=== PATIENT | female | born 1955 | race Caucasian/White ===

== ENCOUNTER 2024-06-02 12:14 | Inpatient (IN) | payer MEDICARE, SELFPAY ==
[2024-06-02] VITALS (12 sets, daily range): BP systolic 100–157; BP diastolic 43–94; BMI 31.1
[2024-06-02 06:51] LABS: % Basophils 0.3 % (0-2); % Eosinophils 1.3 % (0-6); % Immature Granulocytes 0.4 % (0-0.5); % Lymphocytes 11.2 % (20.5-51.1); % Neutrophils 81.8 % (42.2-75.2); Absolute Eosinophils 0.2 10^3/uL (0-0.7); Absolute Immature Granulocytes 0.1 10^3/uL (0-0.05); Absolute Lymphocytes 1.3 10^3/uL (1.2-3.4); Absolute Monocytes 0.6 10^3/uL (0.1-0.6); Absolute Neutrophils 9.4 10^3/uL (1.4-6.5); Hematocrit 44.2 % (37.0-47.0); Mean Corp Hgb Conc. 33.9 g/dL (33.0-37.0); Mean Corpuscular Hgb 30.8 pg (27.0-31.0); Mean Corpuscular Volume 90.8 fL (81.0-99.0); Mean Platelet Volume 10.3 fL (7.4-10.4); Nucleated Red Blood Cells % 0 %; Platelet Count 199 10^3/uL (130-400); Red Blood Cell Count 4.87 10^6/uL (4.20-5.40); Red Cell Dist. Width 13.4 % (11.5-14.5); White Blood Cell Count 11.4 10^3/uL (4.8-10.8)
[2024-06-02 06:58] LABS: Blood Urea Nitrogen 21 mg/dl (7-17); Calcium 9.6 mg/dl (8.4-10.2); Carbon Dioxide 28 mmol/L (22-30); Chloride 107 mmol/L (98-107); Estimated Creatinine Clearance 77 ml/min; Glucose 133 mg/dl (70-99); Sodium 143 mmol/L (135-145); eGFR > 60.00
[2024-06-02 07:10] LABS: COVID-19 Antigen Negative (Negative)
--- NOTE | 2024-06-02 07:21 | ED.GENMED ---
History of Present Illness
General
Chief Complaint: Breathing Problem
Source: patient
Time Seen by Provider: 06/02/24 07:10
History of Present Illness
History of Present Illness:
68-year-old female presents to the emergency room feeling short of breath. Patient states that she felt pretty close to her baseline yesterday with perhaps a little more mucus production than normal. She does states she has a chronic cough. This
morning she was feeling short of breath and working harder to breathe. 911 was called. They noted her pulse ox to be a bit low and placed on oxygen. Patient denies any history of asthma and does not use inhalers or nebulizers. She denies any
fever.
Past History
Past History
ED Past Medical History: Other (Multiple sclerosis, glaucoma, )
ED Past Surgical History: (X 2) and Orthopedic (Left knee cartilage repair)
Social History
Tobacco: Former smoker
Alcohol: None
Personal:
Living: with family
Phy Exam
Physical Exam
Physical Exam:
General: Awake, Alert, Oriented X3. Appears chronically ill, bedbound
Vitals: Afebrile, Tachypneic
Head: Atraumatic
Eyes: Pupils equal, EOMI
Throat: Airway intact, no exudates
Neck: Trachea midline
Lungs: Expiratory wheezing bilaterally
Heart: Regular rate, no murmurs
Abd: Soft, Nontender, No pulsatile mass
Neuro: Diffuse weakness from multiple sclerosis
Skin: Warm, dry, no rash
Extremities: pulses equal b/l, no edema
Scores
Heart Failure Risk
Heart Failure Risk Score: Not Applicable
Course
Orders/Labs/Results
Orders:
Orders
06/02/24 06:28
Electrocardiogram (*1) Urgent
Reason for Study: Other
Other Reason for Exam: Possible Sepsis
Cardiac Monitoring- Treatment ONCE
IV Insert/Care/Rem.- Treatment PRN
CR Chest Portable - 1 View Urgent
Comment:
Reason For Exam: cough/sob
Reason Study Needs to be Portable: Unable to Transport
O2 Therapy [RESP] Urgent
Titrate/Wean O2 to maintain O2 sat greater than (%): 93
Special Instructions: TO MAINTAIN CONTINUOUS O2 SATS > OR = 93%
Pulse Ox/cont/shift [RESP] Urgent
Quantity: 1
Special Instructions: CONTINUOUS
06/02/24 06:29
EKG- Treatment ONCE
06/02/24 06:30
Basic Metabolic Panel Urgent
Complete Blood Count/With Diff Urgent
06/02/24 06:31
COVID-19 Antigen Urgent
Source: Nasal Swab
Influenza A+B Rapid Molecular Urgent
LETTY Source: Nasal Swab
Specimen Description:
06/02/24 07:10
Potassium Urgent
06/02/24 07:17
0.9% Sodium Chloride 1000 ml [Nss] 1,000 ml IV BOLUS
Ipratropium/Albuterol Sulfate [Duoneb] 3 ml INH R NOW STA
06/02/24 07:22
Add On- LAB Urgent
Tests Added?: procalcitonin
06/02/24 08:48
Ipratropium/Albuterol Sulfate [Duoneb] 3 ml INH R NOW STA
06/02/24 09:07
Procalcitonin Urgent
PCT Algorithmm Indication: Respiratory
06/02/24 10:07
Dexamethasone Sod Phosphate [Decadron] 10 mg IV NOW STA
06/02/24 11:50
Admit/Transfer Patient As Directed
Co-Sign Provider:
Level of Care: Inpatient admission
Assign to:: Telemetry
Physician / Group: linda morris
Diagnosis: bronchitis
Reason for Telemetry: Medication for Arrhythmia
Date to Stop Telemetry: 06/04/24
Time to Stop Telemetry: 11:00
Reason for Hospitalization: bronchitis
Expected length of stay greater than two midnights?: Yes
ELOS- Estimated Length of Stay in days: 2
I certify the patient meets the requirements for IP care: Yes
PRN Pain Medication Management As Directed
May give lesser potent ordered pain med per pt: Yes
preference::
Protocol:: Medication orders for pain may be administered in a
manner that supports deferring to patient preference
when the pt is:
- Requesting an ordered lesser potent pain medication.
Least to most potent pain medications are defined
as: acetaminophen < NSAID < tramadol < opioids
(morphine, oxycodone, hydromorphone).
- Requesting a lesser dose of the same medication IF
ORDERED.
- Requesting a less intrusive route of administration
if both routes are prescribed by the provider (PO <
IV).
06/02/24 11:52
Code Status As Directed
Resuscitation Status: Full Code
06/02/24 11:57
Azithromycin [Zithromax] 500 mg PO NOW STA
06/04/24 11:00
DC Protocol for Telemetry ONCE
Abnormal Lab Results
06/02/24
06:30
WBC 11.4 H 10^3/uL
(4.8-10.8)
Abs Immat Gran (auto) 0.1 H 10^3/uL
(0-0.05)
Absolute Neuts (auto) 9.4 H 10^3/uL
(1.4-6.5)
Neutrophils % 81.8 H %
(42.2-75.2)
Lymphocytes % 11.2 L %
(20.5-51.1)
BUN 21 H mg/dl
(7-17)
Creatinine 0.3 L mg/dL
(0.6-1.0)
Glucose 133 H mg/dl
(70-99)
06/02/24 06:30
06/02/24 07:10
Vital Signs
Initial and Last Documented VS:
Initial Vital Signs
Temp
98.2 F
06/02/24 06:17
Last Documented Vital Signs
Temp Pulse Resp BP Pulse Ox
98.2 F 71 22 104/46 93
06/02/24 06:17 06/02/24 12:45 06/02/24 12:45 06/02/24 12:00 06/02/24 12:45
MDM/Problems Addressed
Differential Diagnosis Includes:
Pneumonia, influenza, COVID, bacterial or viral bronchitis, COPD exacerbation
MDM/Problems Addressed:
Patient presents with increased work of breathing and shortness of breath. On exam she does have significant x-ray wheezing. It does not appear she has a known diagnosis of COPD but she is a former smoker. Chest x-ray does not show any acute
infiltrate. Pro-Ray is normal. COVID and flu are negative. Suspect the patient has exacerbation of COPD. She was provided an nebs, IV steroids. She has some improvement but still becomes hypoxic with coughing and talking. She is
wheelchair-bound and has MS making her prone to complications. Hospitalization is appropriate for further management.
*Radiology
Radiology exam reviewed: preliminary read by ED provider (No acute abnormalities per my review of the chest x-ray)
*Pulse Oximetry
Patient hypoxic: yes
*Critical Care Note
Total Time (30-74mins, 75-104mins- exclusive of procedures): Not Applicable
ED Attending Note
-
Portions of this chart may have been created with voice recognition software.� Occasional wrong word or��sound alike� substitutions may have occurred due to the inherent limitations of voice recognition software.
Discharge Plan
Departure
Patient Disposition: Admit
Date of Disposition: 06/02/24
Time of Disposition: 10:26
Presentation/result/management discussed w/ accepting MD/DO: Hospitalist
Condition: Fair
Discharge Problem:
Acute bronchitis, COPD (chronic obstructive pulmonary disease)
Interventions
Interventions:
*Risk Screen - Suicide Last Done: 06/02/24 06:17
*General Assessment Last Done: 06/02/24 06:17
*Neglect/Abuse Screening Last Done: 06/02/24 06:17
ED- Fall Risk Assessment Last Done: 06/02/24 07:45
*ED COVID-19 Vaccine History Last Done: 06/02/24 06:17
ED- Cardiac Assessment Last Done: 06/02/24 07:45
ED- Pulmonary Assessment Last Done: 06/02/24 07:45
[2024-06-02] MEDS: DUONEB 3 ML INH ×4 (07:26→19:57)
[2024-06-02] MEDS: NSS 1000 IV (07:27)
[2024-06-02 07:28] LABS: Potassium 4.6 mmol/L (3.5-5.1)
[2024-06-02 10:10] LABS: Procalcitonin < 0.05 ng/ml (0.0-0.25)
[2024-06-02] MEDS: DECADRON 10 MG IV (10:14)
--- NOTE | 2024-06-02 11:26 | HPS.HSE ---
Family Physician
-
Family Physician: Tess Garcia
Chief Complaint
-
Shortness of breath, cough
History of Present Illness
68-year-old female with a past medical history of MS, glaucoma, and former smoker who presents with worsening shortness of breath and cough. Patient reports she has been feeling short of breath for few weeks, and it was noticeably worse this
morning. She has a cough, sometimes productive. Denies fever, denies chills. No sore throat, no nasal congestion. She has a 92-lcsk-gfen smoking history. She did vomit yesterday. No abdominal pain, no constipation, no diarrhea. No dysuria.
No black or bloody stools. No hematuria.
Medical History
Past Medical History
Past Medical History: Reports Other
Additional Past Medical History:
Multiple sclerosis
Glaucoma
Hyperlipidemia
Obesity due to excess calories
Past Surgical History: Reports Other
Additional Past Surgical History:
Left knee cartilage
Social History
Tobacco: Former Smoker (Smoked 1 pack/day for 30 years)
Alcohol: None
Drug: None
Living: With Family
Family History
Family History: Not pertinent
Allergies / Home Medications
Allergies reflects when Allergies were last updated in [employer].
Home Medications with original date entered in [employer]
Allergy/Medication List:
Allergies
Allergy/AdvReac Type Severity Reaction Status Date / Time
No Known Allergies Allergy Verified 06/02/24 06:17
Home Medications Table - record
�Medication �Instructions �Recorded �Confirmed
atorvastatin 20 mg tablet (Lipitor) 20 mg PO DAILY 06/02/24 06/02/24
dorzolamide 22.3 mg-timolol 6.8 1 drp BOTH EYES BID 06/02/24 06/02/24
mg/mL eye drops
guaifenesin 100 mg/5 mL oral liquid 200 mg PO Q4HPRN PRN cough 06/02/24 06/02/24
latanoprost 0.005 % eye drops 1 drp BOTH EYES HS 06/02/24 06/02/24
Review of Systems
-
A 12 point ROS was completed and negative except as noted: Yes
Physical Exam
Vital Signs
Vital Signs
Temp Pulse Resp BP Pulse Ox
98.2 F 70 27 117/57 94
06/02/24 06:17 06/02/24 11:00 06/02/24 11:00 06/02/24 10:01 06/02/24 11:00
Physical Exam
General: No Apparent Distress
HEENT: NormoCephalic, Anicteric and Moist mucous membranes
Respiratory: Clear
Cardiac: S1/S2 and Regular Rhythm
GI: Soft, Non Tender, Non Distended and Normal Bowel Sounds
Musculoskeletal: No Clubbing and No Cyanosis
Neuro: Awake, Alert and Oriented
Psych: Calm
Laboratory Results
-
06/02/24 06:30
06/02/24 07:10
Laboratory Results
Total Bilirubin Cancelled 06/02/24 06:30
AST Cancelled 06/02/24 06:30
ALT Cancelled 06/02/24 06:30
Alkaline Phosphatase Cancelled 06/02/24 06:30
Impression/Plan
-
HPI: 68-year-old female with a past medical history of MS, glaucoma, and former smoker who presents with worsening shortness of breath and cough. Patient reports she has been feeling short of breath for few weeks, and it was noticeably worse this
morning. She has a cough, sometimes productive. Denies fever, denies chills. No sore throat, no nasal congestion. She has a 73-[id number]-egdn smoking history. She did vomit yesterday. No abdominal pain, no constipation, no diarrhea. No dysuria.
No black or bloody stools. No hematuria.
#Acute hypoxic respiratory insufficiency
#Acute bronchitis
#03-hfhq-vkkv smoking history
Patient satting 88% on room air. Currently on 2 L of oxygen, wean as tolerated
Influenza/COVID-negative, chest x-ray shows patchy left basilar opacification, slightly improved, possibly representing resolving pneumonia
Status post IV dexamethasone in the ER
Treat with azithromycin 500 mg p.o. daily, bronchodilators, wean oxygen as tolerated
Consult pulmonology
#Multiple sclerosis
She is bedbound at baseline
#Hyperlipidemia
Continue statin
#Glaucoma
Continue dorzolamide�timolol eyedrops
#Obesity due to excess calories
Affects all aspects of care
DVT prophylaxis�subcu Lovenox
Full code
Total time spent to see the patient on the floor, examine the patient, review data and lab results, discuss treatment plan with patient, nursing staff around 65 minutes.
[2024-06-02] MEDS: ZITHROMAX 500 MG PO (12:44)
[2024-06-02] MEDS: DUONEB INH (16:01)
--- NOTE | 2024-06-02 17:20 | CON.PUL ---
Consultation
Consultation Request
Date/Time Consultation Requested: 06/02/2024
Date/Time Consultation Performed: 06/02/2024
Requesting Provider: Dr. Luong
Performing Provider: Dr. Jaison Middleton
Reason for Consultation: Acute respiratory insufficiency-/acute bronchitis
Medical History
-
History of Present Illness:
68-year-old woman with past medical history significant for multiple sclerosis, glaucoma, former smoker who presents with worsening shortness of breath and coughing. Patient has been feeling more short of breath for the last few weeks but the
morning of admission was significant with minimal efforts were prompted to come to the emergency room.
Reports cough, productive at times. Denies hemoptysis. Denies increased phlegm production. Denies fevers or chills.
Denies nasal congestion, headache, rash, sore throat, GI or symptoms.
She has a 28-sgwy-skua history of smoking but quit a while ago.
She did report some vomiting yesterday.
She was found to be mildly hypoxemic. 88% on room air requiring 2 L with improvement.
I was consulted on 06/02/2024 for evaluation.
Past Medical History
Past Medical History: Other (See assessment and plan)
Social History
Tobacco: Former Smoker
Alcohol: None
Drug: None
Occupational Exposures: Denies
Environmental Exposures: Denies
Family History
Family History: Reviewed & Not Pertinent
Allergies / Home Medications
Allergies
Allergy/AdvReac Type Severity Reaction Status Date / Time
No Known Allergies Allergy Verified 06/02/24 06:17
Home Medications
�Medication �Instructions �Recorded �Confirmed �Last Taken �Type
atorvastatin 20 mg tablet (Lipitor) 20 mg PO DAILY 06/02/24 06/02/24 06/01/24 History
dorzolamide 22.3 mg-timolol 6.8 1 drp BOTH EYES BID 06/02/24 06/02/24 06/01/24 History
mg/mL eye drops
guaifenesin 100 mg/5 mL oral liquid 200 mg PO Q4HPRN PRN cough 06/02/24 06/02/24 06/01/24 History
latanoprost 0.005 % eye drops 1 drp BOTH EYES HS 06/02/24 06/02/24 06/01/24 History
Review of Systems
-
History Source: Patient
All other systems: Negative unless noted
Vitals / Labs / Diagnostic Testing
Vital Signs
Temp Pulse Resp BP Pulse Ox
98.2 F 94 24 119/94 91
06/02/24 06:17 06/02/24 15:59 06/02/24 15:59 06/02/24 13:00 06/02/24 15:59
Lab Data
06/02/24 06:30
06/02/24 07:10
Microbiology
06/02/24 06:31 Nasal Swab Influenza Types A & B (SHEBA) - Final
Negative for Influenza A & B, NAAT
Negative results must be combined with clinical observations
and patient history.
Nucleic Acid Amplification test (NAAT)performed on the
[employer] platform.
Diagnostic Testing:
Physical Exam
-
HEENT: Normocephalic
Cardiovascular: S1/S2
Respiratory: Wheeze (Minimal), Rhonchi (Bilateral having mild) and Non-Labored Respirations (At rest)
GI: Soft and Non Distended
Neurology: Awake, Alert and Other (Hypertrophic in 4 extremities)
Skin: Warm and Dry
General: Comfortable
Assessment
-
68-year-old woman admitted with shortness of breath. Found to be mildly hypoxemic. Chest x-ray with minimal left lower lobe abnormality compared to April 2023 appears similar. Symptoms were compatible with possible bronchitis. I was consulted
on 06/02/2024 for evaluation.
Acute respiratory insufficiency-88% on room air. Improved for 2 L
Acute tracheobronchitis
Chest x-ray 06/02/2024 reviewed: Patchy left basilar opacification atelectasis versus small pneumonia. Similar to prior in my opinion.
Leukocytosis-left shift
Negative influenza/negative COVID
Conditions present prior admission:
Admission to the hospital April 2023-with C. difficile diarrhea
Chronic aspiration cannot be ruled out with history of MS.-Swallowing evaluation 04/13/2023 without evidence of overt aspiration.
Multiple sclerosis
history of glaucoma
Hypercholesterolemia
Left knee surgery
Obesity
Former smoker 30-bcfj-fdla history
Assessment and plan:
Agree, clinical picture suggestive of acute bronchitis-possibly viral.
chest x-ray has a minimal left lower lobe abnormality similar to April 2023.
Microbiology evaluation so far negative
Agree with azithromycin
Monitor for fevers. Follow leukocytosis.
Symptomatic management-antitussive, nebulizer for secretion clearance
Patient did receive dexamethasone 10 mg in the emergency room-hold for now
Continue mucolytics
If continues to have chest congestion may add Pulmicort twice a day.
Incentive spirometry as able
-.
Provide oxygen to maintain pulse ox above 90%. Currently on 2 L.
-
Microaspiration can occur in patient with MS.
Records reviewed and in April 2023 there is no evidence for aspiration.
Will continue to monitor
May need to be reevaluated by speech pathology at some point.
-
DVT prophylaxis subcu Lovenox
-
Will follow
[2024-06-02] MEDS: LOVENOX 40 MG SC (17:41)
[2024-06-02] MEDS: MUCINEX 1200 MG PO (17:41)
[2024-06-02] MEDS: COSOPT EYE DROPS 2 DROP BOTH EYES (21:25)
[2024-06-02] MEDS: XALATAN OPHTHALMIC SOLUTION 1 DROP BOTH EYES (22:53)
[2024-06-02] MEDS: MUCINEX PO (23:02)
[2024-06-03] VITALS (11 sets, daily range): BP systolic 93–122; BP diastolic 44–66; BMI 29.5
--- NOTE | 2024-06-03 06:46 | PTCARENOTE ---
Patient arrived from the ED via stretcher at approximately 0545. Patient pulled over from stretcher to bed. Patient AAOx3, forgetful @ times. VSS as documented. Assessment as documented. Patient oriented to room. Bed in lowest position. Call correia
within reach.
[2024-06-03] MEDS: DUONEB 3 ML INH ×4 (07:28→19:53)
[2024-06-03] MEDS: MUCINEX 1200 MG PO ×2 (08:29→20:29)
[2024-06-03] MEDS: ZITHROMAX 500 MG PO (08:29)
[2024-06-03] MEDS: LIPITOR 20 MG PO (08:29)
[2024-06-03] MEDS: COSOPT EYE DROPS 1 DROP BOTH EYES ×2 (08:30→20:29)
[2024-06-03] MEDS: ROBITUSSIN 200 MG PO (08:35)
--- NOTE | 2024-06-03 08:37 | W.PN.HOSP.TC ---
Today's Communication/Plan
-
see bold
Assessment / Plan
Assessment / Plan
HPI: 68-year-old female with a past medical history of MS, glaucoma, and former smoker who presents with worsening shortness of breath and cough. Patient reports she has been feeling short of breath for few weeks, and it was noticeably worse this
morning. She has a cough, sometimes productive. Denies fever, denies chills. No sore throat, no nasal congestion. She has a 53-[id number]-utnk smoking history. She did vomit yesterday. No abdominal pain, no constipation, no diarrhea. No dysuria.
No black or bloody stools. No hematuria.
#Acute hypoxic respiratory insufficiency
#Acute bronchitis
#60-jjyg-oaph smoking history
Patient satting 88% on room air. Currently on 2-3 L of oxygen, wean as tolerated. She does not wear oxygen at home
Influenza/COVID-negative, chest x-ray shows patchy left basilar opacification, slightly improved, possibly representing resolving pneumonia
Status post IV dexamethasone in the ER
Pulmonology following, recommend monitoring off steroids for now
Continue azithromycin 500 mg p.o. daily, bronchodilators, wean oxygen as tolerated
#Multiple sclerosis
She is bedbound at baseline
PT/OT
#Hyperlipidemia
Continue statin
#Glaucoma
Continue dorzolamide�timolol eyedrops
#Obesity due to excess calories
Affects all aspects of care
DVT prophylaxis�subcu Lovenox
Full code
Total time spent to see the patient on the floor, examine the patient, review data and lab results, discuss treatment plan with patient, nursing staff around 45 minutes.
Physical Exam
General: No acute distress
HEENT: Normocephalic, Atraumatic, EOMI, MMM
Respiratory: Coarse breath sounds
Cardiac: Normal S1/S2, Regular Rate and Rhythm
GI: Soft, Nontender, Nondistended, Normal Bowel Sounds
Extremities: No Clubbing, Cyanosis
Msk: Atrophy of bilateral lower extremities noted
Neuro: Nonfocal/Grossly Intact
Psych: Calm, Cooperative
Anticipated Discharge: 24 - 48 hours
Subjective/Interval History
-
Date of Service: June 03, 2024
Patient continues to cough. Her shortness of breath improved. Denies chest pain. No fever, no vomiting.
Objective Data
-
Vital Signs:
Vital Signs
Temp Pulse Resp BP Pulse Ox
97.5 F 75 15 93/58 93
06/03/24 05:48 06/03/24 07:31 06/03/24 07:31 06/03/24 05:48 06/03/24 07:31
--- NOTE | 2024-06-03 11:27 | CM ---
Addendum entered by Tuyet Daigle RN 06/03/24 11:37:
Correction: Patient has had [facility] in the past.
Original Note:
Reviewed the chart notes and spoke with the patient at the bedside. The patient resides with her sister and daughter in a two story home with three steps to enter via from and nine in the rear. The patient resides on the first floor level.
Patient is wheelchair bound, but able to transfer with assistance to commode. The patient reports having had [facility] in the past and being to [facility]. The patient is currently on supplemental O2. CM continues to be available to patient/family and is
monitoring medical plan for needs at discharge.
Plan: Discharge plans will depend on the patient's progress.
--- NOTE | 2024-06-03 12:30 | W.PN.PUL3 ---
Today's Communication / Plan
-
Continue DuoNebs
Continue antibiotics
Mucolytics
Incentive spirometry as able
Wean down FiO2
Continue to hold further systemic corticosteroids
Assessment
-
68-year-old woman admitted with shortness of breath. Found to be mildly hypoxemic. Chest x-ray with minimal left lower lobe abnormality compared to April 2023 appears similar. Symptoms were compatible with possible bronchitis. I was consulted
on 06/02/2024 for evaluation.
Acute respiratory insufficiency-88% on room air. Improved for 2 L
Acute tracheobronchitis
Chest x-ray 06/02/2024 reviewed: Patchy left basilar opacification atelectasis versus small pneumonia. Similar to prior in my opinion.
Risk for aspiration given history of multiple sclerosis.
Leukocytosis-left shift
Negative influenza/negative COVID
Negative procalcitonin
Conditions present prior admission:
Admission to the hospital April 2023-with C. difficile diarrhea
Chronic aspiration cannot be ruled out with history of MS.-Swallowing evaluation 04/13/2023 without evidence of overt aspiration.
Multiple sclerosis
history of glaucoma
Hypercholesterolemia
Left knee surgery
Obesity
Former smoker 70-anfg-ajcc history
Assessment and plan:
Agree, clinical picture suggestive of acute bronchitis-possibly viral.
-
Chest x-ray has a minimal left lower lobe abnormality similar to April 2023.
Microbiology evaluation so far negative
Continue azithromycin complete total of 5 days.
-
Remains afebrile. Follow leukocytosis.
Symptomatic management-antitussive, nebulizer for secretion clearance-currently on DuoNebs 4 times a day.
Suction if necessary-has a strong cough effort. Producing minimal phlegm.
Patient did receive dexamethasone 10 mg in the emergency room-hold for now
Continue mucolytics
-
If continues to have chest congestion may add Pulmicort twice a day. Hold for now.
Incentive spirometry as able
-.
Provide oxygen to maintain pulse ox above 90%. Currently on 2 L.
Wean off as able, usually not on oxygen
No evidence for metabolic alkalosis-less likely hypercapnic.
-
Microaspiration can occur in patient with MS.
Records reviewed and in April 2023 there is no evidence for aspiration.
Will continue to monitor
May need to be reevaluated by speech pathology at some point. During this hospital stay.
-
DVT prophylaxis subcu Lovenox
-
Will follow
Subjective Data
-
Date of Service:
Date of Service: June 03, 2024
Objective Data
Data Reviewed
Vital Signs / I&O / Oxygen:
Vital Signs
Temp Pulse Resp BP Pulse Ox
98.0 F 74 20 118/44 91
06/03/24 11:47 06/03/24 11:47 06/03/24 11:47 06/03/24 11:47 06/03/24 07:40
SaO2 91
Nasal Cannula flow liters per 2
minute
Labs/Micro/Reports
Lab Data
06/02/24 06:30
06/02/24 07:10
Microbiology
06/02/24 06:31 Nasal Swab Influenza Types A & B (SHEBA) - Final
Negative for Influenza A & B, NAAT
Negative results must be combined with clinical observations
and patient history.
Nucleic Acid Amplification test (NAAT)performed on the
[employer] platform.
--- NOTE | 2024-06-03 14:57 | PTOTSP ---
Orders received, chart reviewed and spoke with RN, whom cleared patient to participate in session.
Contacted patient bedside and spoke with her for 10 minutes about her current level of function and support at home
Reports she is always lifted out of bed to a W/C by 2 people (usually her 2 sons). Dependently pushed in W/C to bathroom to be lifted on to toilet when needed.
She does not stand at all and does not perform LE exercises. Has not stood or been less than a 2 person assist level 'for years'.
Recommend use of fredis lift for OOB mobility while in house. Does not currently demonstrate skilled therapy need and will be discharged from caseload at this time.
[2024-06-03] MEDS: PULMICORT 0.5 MG INH ×2 (16:14→19:53)
[2024-06-03] MEDS: LOVENOX 40 MG SC (17:53)
[2024-06-03] MEDS: XALATAN OPHTHALMIC SOLUTION 1 DROP BOTH EYES (22:07)
[2024-06-04] VITALS (7 sets, daily range): BP systolic 80–124; BP diastolic 37–61
[2024-06-04] MEDS: DUONEB 3 ML INH (07:27)
[2024-06-04] MEDS: PULMICORT 0.5 MG INH (07:27)
--- NOTE | 2024-06-04 08:58 | W.PN.HOSP.TC ---
Today's Communication/Plan
-
see bold
Assessment / Plan
Assessment / Plan
HPI: 68-year-old female with a past medical history of MS, glaucoma, and former smoker who presents with worsening shortness of breath and cough. Patient reports she has been feeling short of breath for few weeks, and it was noticeably worse this
morning. She has a cough, sometimes productive. Denies fever, denies chills. No sore throat, no nasal congestion. She has a 23-ykbx-ubuy smoking history. She did vomit yesterday. No abdominal pain, no constipation, no diarrhea. No dysuria.
No black or bloody stools. No hematuria.
#Acute hypoxic respiratory insufficiency
#Acute bronchitis
#85-lybo-gcyi smoking history
Patient satting 88% on room air. Currently on 2-3 L of oxygen, wean as tolerated. She does not wear oxygen at home
Influenza/COVID-negative, chest x-ray shows patchy left basilar opacification, slightly improved, possibly representing resolving pneumonia
Status post IV dexamethasone in the ER
Pulmonology following, recommend monitoring off steroids for now
Continue azithromycin 500 mg p.o. daily, bronchodilators, wean oxygen as tolerated
Change DuoNebs to xopenex and ipratropium due to complaints of nausea
#Soft blood pressure
Blood pressure 85/42 today
Patient is asymptomatic
Give midodrine, start gentle IV fluids for 500 cc
#Multiple sclerosis
She is bedbound at baseline, uses [facility] for all care
PT/OT signed off
#Hyperlipidemia
Continue statin
#Glaucoma
Continue dorzolamide�timolol eyedrops
DVT prophylaxis�subcu Lovenox
Full code
Total time spent to see the patient on the floor, examine the patient, review data and lab results, discuss treatment plan with patient, nursing staff around 48 minutes.
Physical Exam
General: No acute distress
HEENT: Normocephalic, Atraumatic, EOMI, MMM
Respiratory: Coarse breath sounds
Cardiac: Normal S1/S2, Regular Rate and Rhythm
GI: Soft, Nontender, Nondistended, Normal Bowel Sounds
Extremities: No Clubbing, Cyanosis
Msk: Atrophy of bilateral lower extremities noted
Neuro: Nonfocal/Grossly Intact
Psych: Calm, Cooperative
Anticipated Discharge: 24 - 48 hours
Subjective/Interval History
-
Date of Service: June 04, 2024
Patient complains of nausea after receiving her DuoNeb. No vomiting. Continues to cough. No shortness of breath. No fever.
Objective Data
-
Vital Signs:
Vital Signs
Temp Pulse Resp BP Pulse Ox
98.1 F 72 20 99/61 92
06/04/24 07:55 06/04/24 07:55 06/04/24 07:55 06/04/24 07:55 06/04/24 07:55
I&O
06/03/24 06/04/24 06/05/24
06:59 06:59 06:59
Intake Total 860 / 860
Output Total 650 / 650
Balance 210 / 210
[2024-06-04] MEDS: ZITHROMAX 500 MG PO (09:48)
[2024-06-04] MEDS: MUCINEX 1200 MG PO ×2 (09:48→20:51)
[2024-06-04] MEDS: COSOPT EYE DROPS 1 DROP BOTH EYES ×2 (09:48→20:51)
[2024-06-04] MEDS: LIPITOR 20 MG PO (09:48)
[2024-06-04] MEDS: DUONEB INH (11:18)
[2024-06-04] MEDS: NSS 500 IV (12:34)
[2024-06-04] MEDS: ProAmatine 5 MG PO (12:35)
[2024-06-04] MEDS: XOPENEX 1.25 MG INHALANT SOLUTION INH ×2 (13:34→17:35)
[2024-06-04] MEDS: ATROVENT NEBULES INH ×2 (13:34→17:35)
--- NOTE | 2024-06-04 16:40 | W.PN.PUL3 ---
Today's Communication / Plan
-
Continue Xopenex + Atrovent; consider pretreating with Zofran next time
Continue Zithromax
Mucolytics
If she continues to have difficulty expectorating then start chest PT with nebulized 3%
Incentive spirometry as able
Start flutter valve
Wean down O2 flow rate; check ambulatory pulse oximetry prior to discharge
Continue to hold further systemic corticosteroids
Pulmonary service will continue to follow along
Assessment
-
68-year-old woman admitted with shortness of breath. Found to be mildly hypoxemic. Chest x-ray with minimal left lower lobe abnormality compared to April 2023 appears similar. Symptoms were compatible with possible bronchitis. I was consulted
on 06/02/2024 for evaluation.
Acute respiratory insufficiency-88% on room air. Improved now on 2 L
Acute tracheobronchitis
Chest x-ray 06/02/2024 reviewed: Patchy left basilar opacification atelectasis versus small pneumonia. Similar to prior in my opinion.
Risk for aspiration given history of multiple sclerosis.
Leukocytosis-left shift
Negative influenza/negative COVID
Negative procalcitonin
Conditions present prior admission:
Admission to the hospital April 2023-with C. difficile diarrhea
Chronic aspiration cannot be ruled out with history of MS.-Swallowing evaluation 04/13/2023 without evidence of overt aspiration.
Multiple sclerosis, not on treatment as she stopped this herself without the recommendation of a neurologist (as per the patient)
history of glaucoma
Hypercholesterolemia
Left knee surgery
Obesity
Former smoker [id number]-lnht history
Assessment and plan:
Clinical picture suggestive of acute bronchitis-possibly viral.
-
Chest x-ray on 06/02/2024 has a minimal left lower lobe abnormality similar to April 2023.
No cultures have been submitted this admission
Continue azithromycin - complete total of 5 days assuming she continues to clinically improve and remains afebrile for 48 hours prior to stop
-
Remains afebrile; trend WBC
Symptomatic management-antitussive, nebulizer for secretion clearance-currently on Xopenex + Atrovent TID
Because she had nausea on 06/04/2024 during a nebulizer treatment, would pretreat with Zofran prior to next administration
Suction if necessary-has a strong cough effort. Producing minimal phlegm.
Patient did receive dexamethasone 10 mg in the emergency room-hold for now
Continue mucolytics with Mucinex 1200mg q12hr
Continue budesonide
-
If continues to have chest congestion with difficulty expectorating then would start chest PT with nebulized 3%
Recommend flutter valve
Incentive spirometry as able
-.
Provide oxygen to maintain pulse ox above 90%. Currently on 2 L.
Wean off as able, as she is usually not on oxygen
No evidence for metabolic alkalosis on blood work from 06/02/2024-less likely hypercapnic.
-
Microaspiration can occur in patient with MS, plus she is not on any medications for her MS (which was her decision)
Records reviewed and in April 2023 there is no evidence for aspiration.
Will continue to monitor
May need to be reevaluated by speech pathology at some point during this hospital stay.
-
DVT prophylaxis subcu Lovenox
-
Will follow
Total time spent today was 37 minutes for this encounter. Time includes reviewing laboratory test/imaging results, reviewing pertinent medical records, obtaining and reviewing medical history, performing an appropriate exam, ordering medications,
tests and procedures. Time also includes documentation of this encounter, coordinating patient care and communicating with other healthcare professionals. Total time does not include separately billed tests performed on this date of service.
Subjective Data
-
Date of Service:
Date of Service: June 04, 2024
Chief Complaint: Pulmonary Follow Up
Subjective:
Patient was seen earlier today (late note entry). Currently on 2 L/min nasal cannula and breathing comfortably. Still coughing but having a difficult time getting up her phlegm. She had some nausea earlier today during a nebulizer treatment. She
currently denies chest pain, JORDAN, nausea, fevers or chills.
Review of Systems
General: Other (Negative unless mentioned above)
Objective Data
Data Reviewed
Vital Signs / I&O / Oxygen:
Vital Signs
Temp Pulse Resp BP Pulse Ox
98.1 F 72 20 99/61 92
06/04/24 07:55 06/04/24 07:55 06/04/24 07:55 06/04/24 07:55 06/04/24 07:55
Intake and Output
06/03/24 06/04/24 06/05/24
06:59 06:59 06:59
Intake Total 860 / 860
Output Total 650 / 650
Balance 210 / 210
SaO2 92
Nasal Cannula flow liters per 2
minute
Physical Exam
General: Respiratory Distress (negative), Comfortable, Chills (negative) and Sweats (negative)
HEENT: Normocephalic and Anicteric
Cardiovascular: S1-S2 and Peripheral Edema (negative)
Respiratory: Wheeze (negative), Crackles (Bilaterally mainly in the anterior lung hatfield (R >L)), Rhonchi (negative) and Non-Labored Respirations
GI: Soft, Non Distended, Non Tender and Normal Bowel Sounds
Neurology: AO x 3 and Tremors (negative)
Skin: Warm, Dry, Cyanosis (negative) and Jaundice (negative)
Labs/Micro/Reports
Lab Data
06/02/24 06:30
06/02/24 07:10
Microbiology
06/03/24 01:11 Nose MRSA Screen - Final
No Methicillin Resistant Staphylococcus aureus isolated.
06/02/24 06:31 Nasal Swab Influenza Types A & B (SHEBA) - Final
Negative for Influenza A & B, NAAT
Negative results must be combined with clinical observations
and patient history.
Nucleic Acid Amplification test (NAAT)performed on the
[employer] platform.
[2024-06-04] MEDS: LOVENOX 40 MG SC (17:13)
[2024-06-04] MEDS: PULMICORT INH (17:35)
[2024-06-04] MEDS: XALATAN OPHTHALMIC SOLUTION 1 DROP BOTH EYES (20:52)
[2024-06-04] MEDS: ZOFRAN 4 MG IV (21:21)
[2024-06-05 03:24] VITALS: BP 110/44
[2024-06-05 07:25] VITALS: BP 109/50
[2024-06-05] MEDS: ATROVENT NEBULES 0.5 MG INH ×3 (07:39→19:54)
[2024-06-05] MEDS: XOPENEX 1.25 MG INHALANT SOLUTION INH ×3 (07:39→19:54)
[2024-06-05] MEDS: PULMICORT 0.5 MG INH ×2 (07:39→19:54)
[2024-06-05] MEDS: ZOFRAN 4 MG IV (07:43)
[2024-06-05] MEDS: FLUSH (NSS) 2 FLUSH IV (07:43)
--- NOTE | 2024-06-05 08:36 | W.PN.HOSP.TC ---
Today's Communication/Plan
-
see bold
Assessment / Plan
Assessment / Plan
HPI: 68-year-old female with a past medical history of MS, glaucoma, and former smoker who presents with worsening shortness of breath and cough. Patient reports she has been feeling short of breath for few weeks, and it was noticeably worse this
morning. She has a cough, sometimes productive. Denies fever, denies chills. No sore throat, no nasal congestion. She has a 60-ipgi-dmzp smoking history. She did vomit yesterday. No abdominal pain, no constipation, no diarrhea. No dysuria.
No black or bloody stools. No hematuria.
#Acute hypoxic respiratory insufficiency
#Acute bronchitis
#83-kvzz-kzjc smoking history
Patient satting 88% on room air. Currently on 2-3 L of oxygen, wean as tolerated. She does not wear oxygen at home
Influenza/COVID-negative, chest x-ray shows patchy left basilar opacification, slightly improved, possibly representing resolving pneumonia
Status post IV dexamethasone in the ER
Pulmonology following, recommend monitoring off steroids for now
Continue azithromycin 500 mg p.o. daily, bronchodilators, wean oxygen as tolerated
Changed DuoNebs to xopenex and ipratropium due to complaints of nausea, also recommend premedicating with Zofran
Continue Acapella valve, may benefit from chest PT as per pulmonology
Consult SPL to assess for microaspiration
#Soft blood pressure
Blood pressure 85/42 on 06/04. Patient asymptomatic
Resolved with midodrine, s/p gentle IV fluids for 500 cc
Monitor, continue midodrine as needed
#Multiple sclerosis
She is bedbound at baseline, uses [facility] for all care
PT/OT signed off
#Hyperlipidemia
Continue statin
#Glaucoma
Continue dorzolamide�timolol eyedrops
DVT prophylaxis�subcu Lovenox
Full code
Total time spent to see the patient on the floor, examine the patient, review data and lab results, discuss treatment plan with patient, nursing staff around 46 minutes.
Physical Exam
General: No acute distress
HEENT: Normocephalic, Atraumatic, EOMI, MMM
Respiratory: Coarse breath sounds
Cardiac: Normal S1/S2, Regular Rate and Rhythm
GI: Soft, Nontender, Nondistended, Normal Bowel Sounds
Extremities: No Clubbing, Cyanosis
Msk: Atrophy of bilateral lower extremities noted
Neuro: Nonfocal/Grossly Intact
Psych: Calm, Cooperative
Anticipated Discharge: 24 - 48 hours
Subjective/Interval History
-
Date of Service: June 05, 2024
Patient received Zofran before getting her breathing treatment. Denies nausea. Continues to cough. Her cough is worse with drinking. No fever, no vomiting.
Objective Data
-
Vital Signs:
Vital Signs
Temp Pulse Resp BP Pulse Ox
98.6 F 90 14 109/50 93
06/05/24 07:25 06/05/24 07:43 06/05/24 07:43 06/05/24 07:25 06/05/24 07:43
I&O
06/04/24 06/05/24 06/06/24
06:59 06:59 06:59
Intake Total 860 / 860 770 / 770
Output Total 650 / 650 225 / 225
Balance 210 / 210 545 / 545
[2024-06-05] MEDS: MUCINEX 1200 MG PO ×2 (09:28→21:17)
[2024-06-05] MEDS: TYLENOL 650 MG PO ×2 (09:28→21:20)
[2024-06-05] MEDS: COSOPT EYE DROPS 1 DROP BOTH EYES ×2 (09:30→21:17)
[2024-06-05] MEDS: ZITHROMAX 500 MG PO (09:34)
[2024-06-05] MEDS: ROBITUSSIN 200 MG PO (09:34)
[2024-06-05] MEDS: LIPITOR 20 MG PO (09:35)
[2024-06-05 11:00] VITALS: BP 99/78
--- NOTE | 2024-06-05 11:52 | PTCARENOTE ---
Pt who is bed bound with a hx of MS, is in a centrea pro bed with two stage 2 buttock wounds. It appears the wounds are increasing in size and breakdown continues. Havre wound and some serosanguineous drainage noted. Will cont to turn pt.
--- NOTE | 2024-06-05 14:00 | W.PN.PUL3 ---
Today's Communication / Plan
-
Continue Xopenex + Atrovent; consider pretreating with Zofran next time
Continue Zithromax
Mucolytics
If she continues to have difficulty expectorating then start chest PT with nebulized 3%
Incentive spirometry as able
Flutter valve
Start Tessalon Perles
Wean down O2 flow rate; check ambulatory pulse oximetry prior to discharge
Continue to hold further systemic corticosteroids
Pulmonary service will continue to follow along
Assessment
-
68-year-old woman admitted with shortness of breath. Found to be mildly hypoxemic. Chest x-ray with minimal left lower lobe abnormality compared to April 2023 appears similar. Symptoms were compatible with possible bronchitis. I was consulted
on 06/02/2024 for evaluation.
Acute respiratory insufficiency-88% on room air. Improved now on 2 L
Acute tracheobronchitis
Chest x-ray 06/02/2024 reviewed: Patchy left basilar opacification atelectasis versus small pneumonia. Similar to prior in my opinion.
Risk for aspiration given history of multiple sclerosis.
Leukocytosis-left shift
Negative influenza/negative COVID
Negative procalcitonin
Conditions present prior admission:
Admission to the hospital April 2023-with C. difficile diarrhea
Chronic aspiration cannot be ruled out with history of MS.-Swallowing evaluation 04/13/2023 without evidence of overt aspiration.
Multiple sclerosis, not on treatment as she stopped this herself without the recommendation of a neurologist (as per the patient)
history of glaucoma
Hypercholesterolemia
Left knee surgery
Obesity
Former smoker 19-mvaz-iegc history
Assessment and plan:
Clinical picture suggestive of acute bronchitis-possibly viral.
-
Chest x-ray on 06/02/2024 has a minimal left lower lobe abnormality similar to April 2023.
No cultures have been submitted this admission
Continue azithromycin - complete total of 5 days assuming she continues to clinically improve and remains afebrile for 48 hours prior to stop
-
Remains afebrile; trend WBC
Symptomatic management-antitussive, nebulizer for secretion clearance-currently on Xopenex + Atrovent TID
Because she had nausea on 06/04/2024 during a nebulizer treatment, continue to pretreat with Zofran prior to nebulizer administration
Suction if necessary-has a strong cough effort. Producing minimal phlegm.
Patient did receive dexamethasone 10 mg in the emergency room-hold for now
Continue mucolytics with Mucinex 1200mg q12hr
Given that her cough is more dry as of 06/05/2024, start Tessalon Perles
Continue budesonide
-
If continues to have chest congestion with difficulty expectorating then would start chest PT with nebulized 3%
Recommend flutter valve
Incentive spirometry as able
-.
Provide oxygen to maintain pulse ox above 90%. Currently on 2 L.
Wean off as able, as she is usually not on oxygen
If unable to wean off oxygen or if resting SaO2 <96% on room air, then check ambulatory pulse oximetry prior to discharge
No evidence for metabolic alkalosis on blood work from 06/02/2024-less likely hypercapnic.
-
Microaspiration can occur in patient with MS, plus she is not on any medications for her MS (which was her decision)
Records reviewed and in April 2023 there is no evidence for aspiration.
Will continue to monitor
May need to be reevaluated by speech pathology at some point during this hospital stay.
-
DVT prophylaxis subcu Lovenox
-
Will follow
Total time spent today was 39 minutes for this encounter. Time includes reviewing laboratory test/imaging results, reviewing pertinent medical records, obtaining and reviewing medical history, performing an appropriate exam, ordering medications,
tests and procedures. Time also includes documentation of this encounter, coordinating patient care and communicating with other healthcare professionals. Total time does not include separately billed tests performed on this date of service.
Subjective Data
-
Date of Service:
Date of Service: June 05, 2024
Chief Complaint: Pulmonary Follow Up
Subjective:
Seen and evaluated today at bedside. Had no problems today with nebulizer and got Zofran prior which helped her nausea which she had felt yesterday. She does feel like her breathing is better with the nebulizer treatment. She is still coughing
similar to yesterday. Currently on 2 L/min nasal cannula. Her cough sounds more dry today. She denies chest pain, JORDAN, nausea, fevers or chills.
Review of Systems
General: Other (Negative unless mentioned above)
Objective Data
Data Reviewed
Vital Signs / I&O / Oxygen:
Vital Signs
Temp Pulse Resp BP Pulse Ox
98.6 F 90 14 109/50 93
06/05/24 07:25 06/05/24 07:43 06/05/24 07:43 06/05/24 07:25 06/05/24 07:43
Intake and Output
06/04/24 06/05/24 06/06/24
06:59 06:59 06:59
Intake Total 860 / 860 770 / 770
Output Total 650 / 650 225 / 225
Balance 210 / 210 545 / 545
SaO2 93
Nasal Cannula flow liters per 2
minute
Physical Exam
General: Respiratory Distress (negative), Comfortable, Chills (negative) and Sweats (negative)
HEENT: Normocephalic and Anicteric
Cardiovascular: S1-S2 and Peripheral Edema (negative)
Respiratory: Wheeze (negative), Rhonchi (negative), Non-Labored Respirations and Other (Coarse breath sounds heard bilaterally)
GI: Soft, Non Distended, Non Tender and Normal Bowel Sounds
Neurology: AO x 3 and Tremors (negative)
Skin: Warm, Dry, Cyanosis (negative) and Jaundice (negative)
Labs/Micro/Reports
Lab Data
06/02/24 06:30
06/02/24 07:10
Microbiology
06/03/24 01:11 Nose MRSA Screen - Final
No Methicillin Resistant Staphylococcus aureus isolated.
06/02/24 06:31 Nasal Swab Influenza Types A & B (SHEBA) - Final
Negative for Influenza A & B, NAAT
Negative results must be combined with clinical observations
and patient history.
Nucleic Acid Amplification test (NAAT)performed on the
[employer] platform.
--- NOTE | 2024-06-05 14:43 | PTOTSP ---
Speech Therapy Evaluation:
Pt with acute on chronic risk factors of dysphagia. Acute risk factors include respiratory insufficiency with acute bronchitis. Chronic factors include MS. Cough x1 noted while masticating regular solids, though pt also with baseline cough outside
of PO intake. No s/sx of aspiration with liquids or puree. Pt passed 3oz swallow screen. CXR with improving patchy L basilar opacity, possibly representing resolving pneumonia. Pt remains at increased risk of aspiration given weak cough strength and
non-ambulatory status at baseline.
VSE hx:
VSE completed 04/13/2023. Pt demonstrated functional/mild oral stage and functional pharyngeal stage of swallowing. No aspiration occurred. FORMULATOR recommend regular and thin liquid diet. No further services indicated at the time.
Recommend:
1. Continue IDDSI Level 7 (regular) solids and thin liquids
2. Medications as tolerated
3. General aspiration precautions
4. FORMULATOR to follow to monitor tolerance of diet and determine if repeat instrumental assessment warranted
[2024-06-05] MEDS: LOVENOX 40 MG SC (16:50)
[2024-06-05 19:17] VITALS: BP 119/45
[2024-06-05] MEDS: TESSALON PERLES 200 MG PO (21:17)
[2024-06-05] MEDS: XALATAN OPHTHALMIC SOLUTION 1 DROP BOTH EYES (21:17)
[2024-06-05 23:24] VITALS: BP 102/41
[2024-06-06 03:36] VITALS: BP 114/50
[2024-06-06 06:00] VITALS: BMI 29.3
[2024-06-06 06:50] VITALS: BP 118/46
[2024-06-06] MEDS: XOPENEX 1.25 MG INHALANT SOLUTION INH ×3 (07:33→20:14)
[2024-06-06] MEDS: ATROVENT NEBULES 0.5 MG INH ×3 (07:33→20:14)
[2024-06-06] MEDS: PULMICORT 0.5 MG INH ×2 (07:33→20:14)
[2024-06-06] MEDS: MUCINEX 1200 MG PO ×2 (08:42→20:55)
[2024-06-06] MEDS: LIPITOR 20 MG PO (08:42)
[2024-06-06] MEDS: TESSALON PERLES 200 MG PO ×3 (08:42→22:07)
[2024-06-06] MEDS: ZITHROMAX 500 MG PO (08:42)
[2024-06-06] MEDS: COSOPT EYE DROPS 1 DROP BOTH EYES ×2 (08:42→20:55)
--- NOTE | 2024-06-06 11:02 | WOUNDNOTE ---
[facility] RN note: Patient admitted with bronchitis. Patient is bedbound, lives with family and is current with VN. She has a hospital bed but said 'Medicare' would not pay for an air mattress.
See H&P for complete history.
PMH: MS, former smoker, obesity.
Wound Location and type/assessment: Patient admitted with: R buttocks cluster of deep dermal stage 2 pressure injuries vs healing stage 3 pressure injury, ulcers pink granular. Does not appear new. Sacral crease MASD. Heels blanchable red and
intact.
Appetite: patient reports her appetite is improved.
Pressure redistribution devices in place: Centrella Pro Accumax bed. She cannot turn self in bed. Discussed with REMY Vasquez agrees with applying a static air overlay.
Plan: R buttocks dressing changed. Waffle air overlay mattress applied. Protective foam applied to heels. Patient turned to L semi side lying position with help from MALIKA Leon. Heels off bed with pillows. t/c SPD and order Foot Waffle boots.
Discussed with MALIKA Leon. Air chair cushion given.
Updated re: appearance of R buttocks ulcers and confirmed orders with Dr. Dutton and will update RN.
Care plan to be updated and will follow as needed.
Note to case management of equipment requested for discharge: Air mattress. Discussed with MARCELLA Zamora.
Recommend follow up at wound care center upon discharge.
[2024-06-06 11:10] VITALS: BP 110/46
--- NOTE | 2024-06-06 12:52 | W.PN.HOSP.TC ---
Addendum entered and electronically signed by Kvng Dutton MD 06/07/24 17:00:
R buttocks cluster of deep dermal stage 2 pressure injuries vs healing stage 3 pressure injury
Original Note:
Today's Communication/Plan
-
Antibiotics
Nebs
Monitor for recurrent hypotension
Wound care
Attempt to wean off O2
Assessment / Plan
Assessment / Plan
HPI: 68-year-old female with a past medical history of MS, glaucoma, and former smoker who presents with worsening shortness of breath and cough. Patient reports she has been feeling short of breath for few weeks, and it was noticeably worse this
morning. She has a cough, sometimes productive. Denies fever, denies chills. No sore throat, no nasal congestion. She has a 38-esah-oaun smoking history. She did vomit yesterday. No abdominal pain, no constipation, no diarrhea. No dysuria.
No black or bloody stools. No hematuria.
#Acute hypoxic respiratory insufficiency
#Acute bronchitis
#34-knqd-wvqz smoking history
Patient satting 88% on room air. Currently on 2-3 L of oxygen, wean as tolerated. She does not wear oxygen at home
Influenza/COVID-negative, chest x-ray shows patchy left basilar opacification, slightly improved, possibly representing resolving pneumonia
Status post IV dexamethasone in the ER
Pulmonology following, recommend monitoring off steroids for now
Continue azithromycin 500 mg p.o. daily, bronchodilators, wean oxygen as tolerated
Changed DuoNebs to xopenex and ipratropium due to complaints of nausea, also recommend premedicating with Zofran
Continue Acapella valve, may benefit from chest PT as per pulmonology
Consult SPL with no evidence for aspiration.
#Soft blood pressure
Blood pressure 85/42 on 06/04. Patient asymptomatic
Resolved with midodrine, s/p gentle IV fluids for 500 cc
Monitor, continue midodrine as needed
#Multiple sclerosis
She is bedbound at baseline, uses [facility] for all care
PT/OT signed off
#Hyperlipidemia
Continue statin
#Glaucoma
Continue dorzolamide�timolol eyedrops
DVT prophylaxis�subcu Lovenox
Full code
Total time spent to see the patient on the floor, examine the patient, review data and lab results, discuss treatment plan with patient, nursing staff around 46 minutes.
Anticipated Discharge: Within 24 hours
Subjective/Interval History
-
Date of Service: June 06, 2024
Objective Data
-
Vital Signs:
Vital Signs
Temp Pulse Resp BP Pulse Ox
98.4 F 73 16 110/46 95
06/06/24 11:10 06/06/24 11:10 06/06/24 11:10 06/06/24 11:10 06/06/24 11:29
I&O
06/05/24 06/06/24 06/07/24
06:59 06:59 06:59
Intake Total 770 / 770 960 / 960
Output Total 225 / 225 175 / 175
Balance 545 / 545 785 / 785
Physical Exam
-
General: No Apparent Distress
HEENT: Moist Mucous Membranes
Respiratory: Rhonchi
Cardiac: Regular Rhythm and S1/S2; Negative Murmur, Rub or JVD
GI: Soft, Nontender and Normal Bowel Sounds
Musculoskeletal: No Edema
Neuro: AO x 3
Psych: Calm
--- NOTE | 2024-06-06 13:52 | W.PN.PUL3 ---
Today's Communication / Plan
-
Borderline hypoxemia noted, remains on 2L but this is likely due to obesity/deconditioning/sedentary lifestyle
Will attempt to wean off O2, she does not ambulate for evaluation of need with exertion
Encouraged OOB, IS, acapella
Discharge planning ok from our perspective
Could use SNF but she wants to go home
Assessment
-
68-year-old woman admitted with shortness of breath. Found to be mildly hypoxemic. Chest x-ray with minimal left lower lobe abnormality compared to April 2023 appears similar. Symptoms were compatible with possible bronchitis. We are consulted
on 06/02/2024 for evaluation.
Acute respiratory insufficiency-88% on room air. Improved now on 2 L
Acute tracheobronchitis
Chest x-ray 06/02/2024 reviewed: Patchy left basilar opacification atelectasis versus small pneumonia. Similar to prior in my opinion.
Risk for aspiration given history of multiple sclerosis.
Leukocytosis-left shift
Negative influenza/negative COVID
Negative procalcitonin
Conditions present prior admission:
Admission to the hospital April 2023-with C. difficile diarrhea
Chronic aspiration cannot be ruled out with history of MS.-Swallowing evaluation 04/13/2023 without evidence of overt aspiration.
Multiple sclerosis, not on treatment as she stopped this herself without the recommendation of a neurologist (as per the patient)
History of glaucoma
Hypercholesterolemia
Left knee surgery
Obesity
Former smoker [id number] history
Assessment and plan:
Clinical picture suggestive of acute bronchitis-possibly viral.
Chest x-ray on 06/02/2024 has a minimal left lower lobe abnormality similar to April 2023.
No cultures have been submitted this admission
Continue azithromycin - complete total of 5 days assuming she continues to clinically improve and remains afebrile for 48 hours prior to stop
Remains afebrile; trend WBC
Symptomatic management-antitussive, nebulizer for secretion clearance-currently on Xopenex + Atrovent TID
Because she had nausea on 06/04/2024 during a nebulizer treatment, continue to pretreat with Zofran prior to nebulizer administration
Suction if necessary-has a strong cough effort. Producing minimal phlegm.
Patient did receive dexamethasone 10 mg in the emergency room-hold for now
Continue mucolytics with Mucinex 1200mg q12hr
Given that her cough is more dry as of 06/05/2024, start Tessalon Perles
Continue budesonide
Needs OOB/PT/OT
Recommend flutter valve
Incentive spirometry as able
Provide oxygen to maintain pulse ox above 90%. Currently on 2 L.
Wean off as able, as she is usually not on oxygen
If unable to wean off oxygen or if resting SaO2 <96% on room air, then check ambulatory pulse oximetry prior to discharge
No evidence for metabolic alkalosis on blood work from 06/02/2024-less likely hypercapnic.
-
Microaspiration can occur in patient with MS, plus she is not on any medications for her MS (which was her decision)
Records reviewed and in April 2023 there is no evidence for aspiration.
Will continue to monitor
May need to be reevaluated by speech pathology at some point during this hospital stay.
-
DVT prophylaxis subcu Lovenox
-
Will follow
Total time spent today was 50 minutes for this encounter. Time includes reviewing laboratory test/imaging results, reviewing pertinent medical records, obtaining and reviewing medical history, performing an appropriate exam, ordering medications,
tests and procedures. Time also includes documentation of this encounter, coordinating patient care and communicating with other healthcare professionals. Total time does not include separately billed tests performed on this date of service.
Subjective Data
-
Date of Service:
Date of Service: June 06, 2024
Chief Complaint: Pulmonary Follow Up
Subjective:
No new complaints, feels cough but nonproductive
Does not ambulate much at all at baseline
Remains on 2L
Objective Data
Data Reviewed
Vital Signs / I&O / Oxygen:
Vital Signs
Temp Pulse Resp BP Pulse Ox
98.4 F 87 16 110/46 92
06/06/24 11:10 06/06/24 13:31 06/06/24 13:31 06/06/24 11:10 06/06/24 13:31
Intake and Output
06/05/24 06/06/24 06/07/24
06:59 06:59 06:59
Intake Total 770 / 770 960 / 960
Output Total 225 / 225 175 / 175
Balance 545 / 545 785 / 785
SaO2 92
Nasal Cannula flow liters per 2
minute
Physical Exam
General: Respiratory Distress (negative), Comfortable, Chills (negative) and Sweats (negative)
HEENT: Normocephalic, Anicteric and Moist Mucous Membranes
Cardiovascular: S1-S2, Regular Rhythm and Peripheral Edema (negative)
Respiratory: Wheeze (negative), Rhonchi (negative), Non-Labored Respirations and Other (Coarse breath sounds heard bilaterally)
GI: Soft, Non Distended, Non Tender and Normal Bowel Sounds
Neurology: AO x 3 and Tremors (negative)
Skin: Warm, Dry, Cyanosis (negative) and Jaundice (negative)
Labs/Micro/Reports
Lab Data
06/02/24 06:30
06/02/24 07:10
Microbiology
06/03/24 01:11 Nose MRSA Screen - Final
No Methicillin Resistant Staphylococcus aureus isolated.
--- NOTE | 2024-06-06 14:30 | PN.CDI ---
CDI
- -
CDI:
Physician Documentation Request
Admit Date: 06/02/24 12:14
Dear Doctor Marija,
Please review the following and provide your response in the progress notes.
Clinical Indicators:
Pt admitted with Acute Viral Bronchitis /Possible Pneumonia
Documented per [facility] 06/06, ' Patient admitted with: R buttocks cluster of deep dermal stage 2 pressure injuries vs healing stage 3 pressure injury, ulcers pink granular. Does not appear new. Sacral crease MASD....R buttocks dressing changed. Waffle
air overlay mattress applied. Protective foam applied to heels...'
Physician documentation of the type and location of wounds is required for compliant documentation. Based on the above clinical findings and your assessment, please provide the following in your progress note:
1. Location of the ulcer/wound, including laterality.
2. Type (etiology) of ulcer/wound:
- Pressure (decubitus) ulcer
- Non-pressure ulcer
- Other ( please specify)
Use of terms such as suspected, likely, concern for, or probable (associated with a specific diagnosis that is being evaluated, monitored, or treated as if it exists) are acceptable and can be coded in the inpatient setting, when documented at the
time of discharge.
Thank you,
Tess Ashley RN
CDI Specialist
[facility]
Please use your independent medical judgment in providing your response.
*Source: National Pressure Ulcer Advisory Panel (NPUAP)
--- NOTE | 2024-06-06 14:35 | PN.CDI ---
CDI
- -
CDI:
Physician Documentation Request
Admit Date: 06/02/24 12:14
Dear Doctor Marija,
Please review the following and provide your response in the progress notes.
Clinical Indicators:
Pt admitted with Acute Viral Bronchitis /Possible Pneumonia /Pt with Multiple Sclerosis
Progress notes 06/04-06/06,' Multiple sclerosis She is bedbound at baseline, uses [facility] for all carePT/OT signed off...'
Documented per rehab panel PT note 06/02, ' Previous functional ability dependent .... contracted left hand...'
Documented per OT note 06/03,' reports she is always lifted out of bed to W/C by 2 people ..Dependently pushed in W/C to bathroom to be lifted on to toilet when needed..She does not stand at all and does not ab1nyygy LE exercises .Has not stood or
been less than 2 person assist level for years.'
Please provide further specificity regarding pt functional ability:
Functional Quadriplegia - complete immobility due to severe physical disability or frailty
Weakness only
Other ( please specify)
Use of terms such as suspected, likely, concern for, or probable (associated with a specific diagnosis that is being evaluated, monitored, or treated as if it exists) are acceptable and can be coded in the inpatient setting, when documented at the
time of discharge.
Thank you,
Tess Ashley RN
CDI Specialist
[place] [facility]
Please use your independent medical judgment in providing your response.
--- NOTE | 2024-06-06 15:32 | CM ---
Reviewed the chart notes and spoke with the patient at the bedside. IMM reviewed. The patient anticipates being discharged to home with [facility] services for wound care. Referral sent in [facility] and was accepted by [facility]. CM
continues to be available to patient/family and is monitoring medical plan for needs at discharge.
Plan: Discharge to home with [facility] services.
[facility] )
[2024-06-06 15:44] VITALS: BP 101/46
[2024-06-06] MEDS: LOVENOX 40 MG SC (17:12)
[2024-06-06 17:41] VITALS: BMI 29.3
[2024-06-06 19:24] VITALS: BP 113/50
[2024-06-06] MEDS: XALATAN OPHTHALMIC SOLUTION 1 DROP BOTH EYES (22:07)
[2024-06-06 23:52] VITALS: BP 105/51
[2024-06-07] VITALS (8 sets, daily range): BP systolic 91–125; BP diastolic 37–63
[2024-06-07 06:37] LABS: Hematocrit 38.7 % (37.0-47.0); Mean Corp Hgb Conc. 33.6 g/dL (33.0-37.0); Mean Corpuscular Hgb 30.4 pg (27.0-31.0); Mean Corpuscular Volume 90.6 fL (81.0-99.0); Mean Platelet Volume 10.9 fL (7.4-10.4); Platelet Count 212 10^3/uL (130-400); Red Blood Cell Count 4.27 10^6/uL (4.20-5.40); Red Cell Dist. Width 13.1 % (11.5-14.5); White Blood Cell Count 8.5 10^3/uL (4.8-10.8)
[2024-06-07 06:45] LABS: Blood Urea Nitrogen 19 mg/dl (7-17); Calcium 8.9 mg/dl (8.4-10.2); Carbon Dioxide 32 mmol/L (22-30); Chloride 99 mmol/L (98-107); Estimated Creatinine Clearance 75 ml/min; Glucose 104 mg/dl (70-99); Potassium 4.1 mmol/L (3.5-5.1); Sodium 138 mmol/L (135-145); eGFR > 60.00
[2024-06-07] MEDS: PULMICORT 0.5 MG INH ×2 (07:25→19:34)
[2024-06-07] MEDS: XOPENEX 1.25 MG INHALANT SOLUTION INH ×3 (07:25→19:34)
[2024-06-07] MEDS: ATROVENT NEBULES 0.5 MG INH ×3 (07:25→19:34)
[2024-06-07] MEDS: LIPITOR 20 MG PO (09:41)
[2024-06-07] MEDS: COSOPT EYE DROPS 1 DROP BOTH EYES ×2 (09:41→20:16)
[2024-06-07] MEDS: TESSALON PERLES 200 MG PO ×2 (09:41→17:38)
[2024-06-07] MEDS: MUCINEX 1200 MG PO ×2 (09:41→20:16)
[2024-06-07] MEDS: ZITHROMAX 500 MG PO (09:42)
--- NOTE | 2024-06-07 13:17 | W.PN.PUL3 ---
Today's Communication / Plan
-
Remains on 2L, wean off as tolerated
Cough minimal, she offers no new complaints
Needs aggressive rehab at this point, can assess for placement
Discharge planning per team
We will sign off at this time, please call with questions
Assessment
-
68-year-old woman admitted with shortness of breath. Found to be mildly hypoxemic. Chest x-ray with minimal left lower lobe abnormality compared to April 2023 appears similar. Symptoms were compatible with possible bronchitis. We are consulted
on 06/02/2024 for evaluation.
Acute respiratory insufficiency-88% on room air. Improved now on 2 L
Acute tracheobronchitis
Chest x-ray 06/02/2024 reviewed: Patchy left basilar opacification atelectasis versus small pneumonia. Similar to prior in my opinion.
Risk for aspiration given history of multiple sclerosis.
Leukocytosis-left shift
Negative influenza/negative COVID
Negative procalcitonin
Conditions present prior admission:
Admission to the hospital April 2023-with C. difficile diarrhea
Chronic aspiration cannot be ruled out with history of MS.-Swallowing evaluation 04/13/2023 without evidence of overt aspiration.
Multiple sclerosis, not on treatment as she stopped this herself without the recommendation of a neurologist (as per the patient)
History of glaucoma
Hypercholesterolemia
Left knee surgery
Obesity
Former smoker [id number] history
Plan
Currently 95% on 2L
Clinical picture suggestive of acute bronchitis-possibly viral.
Chest x-ray on 06/02/2024 has a minimal left lower lobe abnormality similar to April 2023.
No cultures have been submitted this admission
Continue azithromycin - complete total of 5 days assuming she continues to clinically improve and remains afebrile for 48 hours prior to stop
Remains afebrile; trend WBC
Symptomatic management-antitussive, nebulizer for secretion clearance-currently on Xopenex + Atrovent TID
Because she had nausea on 06/04/2024 during a nebulizer treatment, continue to pretreat with Zofran prior to nebulizer administration
Suction if necessary-has a strong cough effort. Producing minimal phlegm.
Patient did receive dexamethasone 10 mg in the emergency room-hold for now
Continue mucolytics with Mucinex 1200mg q12hr
Given that her cough is more dry as of 06/05/2024, start Tessalon Perles
Continue budesonide
Needs OOB/PT/OT
Recommend flutter valve
Incentive spirometry as able
Provide oxygen to maintain pulse ox above 90%. Currently on 2 L.
Wean off as able, as she is usually not on oxygen
If unable to wean off oxygen or if resting SaO2 <96% on room air, then check ambulatory pulse oximetry prior to discharge
No evidence for metabolic alkalosis on blood work from 06/02/2024-less likely hypercapnic.
-
Microaspiration can occur in patient with MS, plus she is not on any medications for her MS (which was her decision)
Records reviewed and in April 2023 there is no evidence for aspiration.
Will continue to monitor
May need to be reevaluated by speech pathology at some point during this hospital stay.
-
DVT prophylaxis subcu Lovenox
-
Will follow
Total time spent today was 35 minutes for this encounter. Time includes reviewing laboratory test/imaging results, reviewing pertinent medical records, obtaining and reviewing medical history, performing an appropriate exam, ordering medications,
tests and procedures. Time also includes documentation of this encounter, coordinating patient care and communicating with other healthcare professionals. Total time does not include separately billed tests performed on this date of service.
Subjective Data
-
Date of Service:
Date of Service: June 07, 2024
Chief Complaint: Pulmonary Follow Up
Subjective:
Remains the same, no new changes
95% on 2L NC
Cough minimal
Objective Data
Data Reviewed
Vital Signs / I&O / Oxygen:
Vital Signs
Temp Pulse Resp BP Pulse Ox
97.7 F 73 16 91/37 97
06/07/24 11:21 06/07/24 11:21 06/07/24 11:21 06/07/24 11:21 06/07/24 11:21
Intake and Output
06/06/24 06/07/24 06/08/24
06:59 06:59 06:59
Intake Total 960 / 960 400 / 400
Output Total 175 / 175 400 / 400
Balance 785 / 785 0 / 0
SaO2 97
Nasal Cannula flow liters per 2
minute
Physical Exam
General: Respiratory Distress (negative), Comfortable, Chills (negative) and Sweats (negative)
HEENT: Normocephalic, Anicteric and Moist Mucous Membranes
Cardiovascular: S1-S2, Regular Rhythm and Peripheral Edema (negative)
Respiratory: Wheeze (negative), Rhonchi (negative), Non-Labored Respirations and Other (Coarse breath sounds heard bilaterally)
GI: Soft, Non Distended, Non Tender and Normal Bowel Sounds
Neurology: AO x 3 and Tremors (negative)
Skin: Warm, Dry, Cyanosis (negative) and Jaundice (negative)
Labs/Micro/Reports
Lab Data
06/07/24 05:28
06/07/24 05:28
Microbiology
06/03/24 01:11 Nose MRSA Screen - Final
No Methicillin Resistant Staphylococcus aureus isolated.
--- NOTE | 2024-06-07 14:06 | CM ---
Reviewed the chart notes and spoke with the patient at the bedside. Send order and clinicals to [facility] for air mattress for the bed. Per Rachael at [facility], since the patient owns the hospital bed currently, Medicare will not cover mattress.
In addition, the wounds are not large enough for for insurance to cover mattress. Renting mattress cost is $295/month or purchase hinojosa is $1690. Patient will take mattress overlay with her when she is discharged. continues to be available to
patient/family and is monitoring medical plan for needs at discharge.
Plan: Discharge to home with [facility] services.
[facility] )
--- NOTE | 2024-06-07 16:31 | W.DS.TRANS ---
DC Summary - Tonal Regulator
-
Discharge Instructions:
Discharge Diagnosis/Procedures Acute bronchitis
Diet Regular
Instructions:
Stand-Alone Forms:
Changes to Home Medications: Yes
Discharge Medications:
DC Medications w/original date entered in [facility]
atorvastatin 20 mg tablet (Lipitor) 20 mg PO DAILY 06/02/24
dorzolamide 22.3 mg-timolol 6.8 mg/mL eye drops 1 drp BOTH EYES BID 06/02/24
guaifenesin 100 mg/5 mL oral liquid 200 mg PO Q4HPRN PRN cough 06/02/24
latanoprost 0.005 % eye drops 1 drp BOTH EYES HS 06/02/24
albuterol sulfate 90 mcg/actuation aerosol inhaler 2 puff inhalation QID PRN shortness of breath or wheezing #6.7 grams 06/07/24
budesonide 0.5 mg/2 mL suspension for nebulization 0.5 mg (2 mL) inhalation R BID #60 mL 06/07/24
Home Medication Changes
Pulmicort and albuterol added
Pending Results: No
[2024-06-07] MEDS: LOVENOX SC (17:38)
== END 2024-06-07 21:51 | disposition home health service (06) | DRG 202 ==
LOC: 2 NORTH 12:14
PROVIDERS: Nurse Practitioner Gerontology; ADMITTING PHYSICIAN Family Medicine; ATTENDING PHYSICIAN Internal Medicine; CONSULT PHYSICIAN Internal Medicine Critical Care Medicine; EMERGENCY PHYSICIAN Emergency Medicine; FAMILY PHYSICIAN Physician Assistant
DX: J20.9 Acute bronchitis, unspecified (principal); L89.313 Pressure ulcer of right buttock, stage 3; J98.11 Atelectasis; R09.02 Hypoxemia; R06.89 Other abnormalities of breathing; G35 Multiple sclerosis; H40.9 Unspecified glaucoma; E66.09 Other obesity due to excess calories; Z68.29 Body mass index [BMI] 29.0-29.9, adult; E78.00 Pure hypercholesterolemia, unspecified; Z11.52 Encounter for screening for COVID-19; Z74.01 Bed confinement status; Z87.891 Personal history of nicotine dependence
CPT/HCPCS: 71045; 80048; 84132; 84145; 85025; 85027; 87070; 87502; 87811; 92610; 93005; 94640; 96361; 96374; 99285

== ENCOUNTER 2024-12-28 16:41 | Inpatient (IN) | payer MEDICARE, SELFPAY ==
[2024-12-28] VITALS (12 sets, daily range): BP systolic 92–123; BP diastolic 37–58; BMI 29.7; BMI 28.7
--- NOTE | 2024-12-28 13:19 | ED.GENMED ---
History of Present Illness
General
Chief Complaint: Breathing Problem
Time Seen by Provider: 12/28/24 13:05
History of Present Illness
History of Present Illness:
69-year-old female with reported history of MS presenting to the emergency department for cough and shortness of breath. Patient reports that she has been having these symptoms for the past 5 days. Does note a sick contact 2 weeks ago. Denies any
personal history of lung disease, however patient was admitted to the hospital in June 2024 for similar symptoms, thought to have acute bronchitis with underlying COPD. Patient has a [id number]-[id number] smoking history, does not presently smoke, however
her sister smokes with her. Denies associated chest pain. Denies fever. Per medics, patient was hypoxic to the 80s, received treatment and route with improvement of saturations. No additional history obtained at this time.
Past History
Past History
ED Past Medical History: Other (Multiple sclerosis, glaucoma, )
ED Past Surgical History: (X 2) and Orthopedic (Left knee cartilage repair)
Social History
Tobacco: Former smoker
Alcohol: None
Personal:
Living: with family
Phy Exam
Physical Exam
Physical Exam:
General: Well-appearing, no clinical signs of dehydration, nontoxic and in no acute distress
HEENT: protecting airway
Neck: appears supple
CV: Normal heart rate, regular rhythm
Resp: Tachypnea with diffuse inspiratory and expiratory wheezing
Abd: No distention
Extremities: Contracture to the left upper extremity, reportedly chronic from MS. Weakness to bilateral lower extremities, reported as chronic
Neuro: alert, no focal neurologic deficit
: deferred
Rectal: deferred
Psych: Normal affect
Skin: Intact
Scores
Heart Failure Risk
Heart Failure Risk Score: Not Applicable
Course
Orders/Labs/Results
Orders:
Orders
12/28/24 13:16
Ipratropium/Albuterol Sulfate [Duoneb] 9 ml INH R NOW ONE
MethylPREDNISolone PF [Solu-Medrol Pf] 125 mg IV NOW STA
12/28/24 13:17
Electrocardiogram (*1) Stat
Reason for Study: Other
Other Reason for Exam: chest pain
EKG- Treatment ONCE
CR Chest - 2 Views Urgent
Comment:
Reason For Exam: SOB, wheezing
12/28/24 13:22
Basic Metabolic Panel Urgent
Complete Blood Count/With Diff Urgent
NT-proBNP Urgent
Troponin I Urgent
12/28/24 13:53
COVID-19 Antigen Urgent
Source: Nasal Swab
Influenza A+B Rapid Molecular Urgent
LETTY Source: Nasal Swab
Specimen Description:
12/28/24 14:56
Azithromycin 500 mg/250 ml [Zithromax Infusion] 500 mg in 250 ml IV NOW
CefTRIAXone [Rocephin] 1,000 mg IV NOW STA
12/28/24 16:03
Procalcitonin Urgent
If negative, will antibiotics be d/c'd or not started: Yes
Does the patient have renal or hepatic impairment?: No
Any recent (w/in 48 hrs) physiologic stress (CPR, rhabdo): No
12/28/24 16:06
Admit/Transfer Patient As Directed
Co-Sign Provider:
Level of Care: Inpatient admission
Assign to:: Medical/Surgical
Physician / Group: [place]
Diagnosis: Acute Bronchitis
Reason for Hospitalization: IV steroids, Nebs, Oxygen
Expected length of stay greater than two midnights?: Yes
ELOS- Estimated Length of Stay in days: 3
I certify the patient meets the requirements for IP care: Yes
PRN Pain Medication Management As Directed
May give lesser potent ordered pain med per pt: Yes
preference::
Protocol:: Medication orders for pain may be administered in a
manner that supports deferring to patient preference
when the pt is:
- Requesting an ordered lesser potent pain medication.
Least to most potent pain medications are defined
as: acetaminophen < NSAID < tramadol < opioids
(morphine, oxycodone, hydromorphone).
- Requesting a lesser dose of the same medication IF
ORDERED.
- Requesting a less intrusive route of administration
if both routes are prescribed by the provider (PO <
IV).
12/28/24 16:07
Code Status As Directed
Resuscitation Status: Full Code
Abnormal Lab Results
12/28/24
13:22
MPV 11.3 H fL
(7.4-10.4)
Absolute Neuts (auto) 6.9 H 10^3/uL
(1.4-6.5)
Absolute Monos (auto) 0.8 H 10^3/uL
(0.1-0.6)
Lymphocytes % 17.7 L %
(20.5-51.1)
BUN 31 H mg/dl
(7-17)
Creatinine 0.4 L mg/dL
(0.6-1.0)
12/28/24 13:22
12/28/24 13:22
Vital Signs
Initial and Last Documented VS:
Initial Vital Signs
Temp Pulse Resp BP Pulse Ox
97.4 F 78 15 116/53 94
12/28/24 13:04 12/28/24 13:04 12/28/24 13:04 12/28/24 13:04 12/28/24 13:04
Last Documented Vital Signs
Temp Pulse Resp BP Pulse Ox
97.6 F 77 18 113/44 93
12/28/24 20:11 12/28/24 20:11 12/28/24 20:11 12/28/24 20:11 12/28/24 20:11
MDM/Problems Addressed
MDM/Problems Addressed:
69-year-old female with past smoking history and MS presenting for shortness of breath and cough. Vital signs on arrival significant for hypoxia.
On exam, patient with mild tachypnea, diffuse inspiratory and expiratory wheezing. Patient with active rattling cough. Ultimately suspect acute bronchitis, with likely underlying COPD and possible COPD exacerbation. Pneumonia is also
consideration given patient's cough. Will obtain chest x-ray imaging. Will screen with EKG and laboratory analysis. Will treat with DuoNebs and steroids and reassess for improvement. Lower suspicion for PE. No significant PE risk factors, with
diffuse wheezing on exam, more consistent with reactive airway disease
14:55 - Chest x-ray shows evidence of possible pneumonia. Given presenting hypoxia, O2 requirements with evidence of infection, will start patient antibiotics and plan for admission
*Pulse Oximetry
SaO2: 89
Nasal Cannula flow liters per minute: 2
Patient hypoxic: yes
*Critical Care Note
Total Time (30-74mins, 75-104mins- exclusive of procedures): Not Applicable
ED Attending Note
-
Portions of this chart may have been created with voice recognition software.� Occasional wrong word or��sound alike� substitutions may have occurred due to the inherent limitations of voice recognition software.
Discharge Plan
Departure
Patient Disposition: Admit
Date of Disposition: 12/28/24
Time of Disposition: 15:33
Presentation/result/management discussed w/ accepting MD/DO: Hospitalist
Patient with high blood pressure during this ER visit?: No
Condition: Fair
Discharge Problem:
Acute bronchitis, Community acquired pneumonia
Interventions
Interventions:
*Risk Screen - Suicide Last Done: 12/28/24 13:13
*General Assessment Last Done: 12/28/24 13:13
*Neglect/Abuse Screening Last Done: 12/28/24 13:13
*ED- Fall Risk Assessment Last Done: 12/28/24 13:13
*ED COVID-19 Vaccine History Last Done: 12/28/24 13:13
*Nursing Disposition Last Done: 12/28/24 19:53
ED- Cardiac Assessment Last Done: 12/28/24 13:13
ED- Pulmonary Assessment Last Done: 12/28/24 13:13
Discharge Date and Time
Discharge Date/Time: 12/28/24 19:54
[2024-12-28 13:38] LABS: Hematocrit 45.6 % (37.0-47.0); Hemoglobin 15.2 g/dL (12.0-16.0); Mean Corp Hgb Conc. 33.3 g/dL (33.0-37.0); Mean Corpuscular Volume 90.8 fL (81.0-99.0); Nucleated Red Blood Cells % 0 %; Platelet Count 159 10^3/uL (130-400); Red Cell Dist. Width 14.0 % (11.5-14.5)
[2024-12-28 13:52] LABS: Blood Urea Nitrogen 31 mg/dl (7-17); Calcium 9.8 mg/dl (8.4-10.2); Carbon Dioxide 27 mmol/L (22-30); Estimated Creatinine Clearance 75 ml/min; Glucose 90 mg/dl (70-99); eGFR > 60.00
[2024-12-28 13:58] LABS: Troponin I < 0.012 ng/ml
[2024-12-28 13:59] LABS: Chloride 106 mmol/L (98-107)
[2024-12-28 14:08] LABS: Sodium 142 mmol/L (135-145)
[2024-12-28 14:50] LABS: COVID-19 Antigen Negative (Negative)
[2024-12-28] MEDS: SOLU-MEDROL PF 125 MG IV (14:53)
[2024-12-28] MEDS: DUONEB 9 ML INH (14:53)
--- NOTE | 2024-12-28 15:45 | HPS.HSE ---
Addendum entered and electronically signed by Greg Hoffman MD 12/28/24 18:06:
This is an addendum to H&P written by Sarah Guaman on 12/28/2024. �Patient seen and examined independently with PA.
69-year-old female past medical history of smoking history, multiple sclerosis, hyperlipidemia, glucoma, presenting with shortness of breath and cough. �She ran out of budesonide few days ago. �Saturating 88% on room air. Blood pressure 90s
systolic.�
Chest x-ray shows mild left basilar opacity suggesting atelectasis, scarring and or pneumonia.
Patient with acute COPD exacerbation. �DuoNebs, dexamethasone, restart budesonide. �Received azithromycin/ceftriaxone for pneumonia. �Check procalcitonin and can stop antibiotics if negative.
Original Note:
Family Physician
-
Family Physician: Tess Garcia
Chief Complaint
-
Cough and Shortness of Breath
History of Present Illness
Patient is a 69 y/o female past medical history of Multiple Sclerosis, Glaucoma and Hyperlipidemia who presents with increased cough and shortness of breath. Patient reports worsening cough over the past week or so. She reports cough is very wet
sounding but she is unable to bring up any mucus. She reports she ran out of her nebulizer treatments a few days ago. Since that time she has noted increased shortness of breath. She denies fevers. She denies chest pain. She is a former smoker
and quit 10 years ago, but denies prior diagnosis of COPD.
Medical History
Past Medical History
Past Medical History: Reports Other
Additional Past Medical History:
Multiple sclerosis
Glaucoma
Hyperlipidemia
Obesity due to excess calories
Past Surgical History: Reports Other
Additional Past Surgical History:
Left knee cartilage
Social History
Tobacco: Former Smoker (Smoked 1 pack/day for 30 years)
Alcohol: None
Drug: None
Living: With Family
Family History
Family History: Not pertinent
Allergies / Home Medications
Allergies reflects when Allergies were last updated in [facility].
Home Medications with original date entered in [facility]
Allergy/Medication List:
Allergies
Allergy/AdvReac Type Severity Reaction Status Date / Time
azathioprine (From Imuran) Allergy Vomiting Verified 06/04/24 15:47
Home Medications
atorvastatin 20 mg tablet (Lipitor) 20 mg PO DAILY High Cholesterol 06/02/24
dorzolamide 22.3 mg-timolol 6.8 mg/mL eye drops 1 drp BOTH EYES BID Eye Condition 06/02/24
latanoprost 0.005 % eye drops 1 drp BOTH EYES HS Eye Condition 06/02/24
albuterol sulfate 90 mcg/actuation aerosol inhaler 2 puff inhalation R Q6HPRN PRN shortness of breath or wheezing 12/28/24
budesonide 0.5 mg/2 mL suspension for nebulization 0.5 mg inhalation R BID Lung/Breathing Issues 12/28/24
guaifenesin 200 mg tablet 200 mg PO BIDPRN PRN cough 12/28/24
Review of Systems
-
A 12 point ROS was completed and negative except as noted: Yes
Constitutional: Denies Fever or Chills
Respiratory: Reports Cough and Trouble Breathing
Cardiac: Denies Chest Pain or Palpitations
Physical Exam
Vital Signs
Vital Signs
Temp Pulse Resp BP Pulse Ox
97.2 F 71 22 113/44 95
12/28/24 14:00 12/28/24 15:00 12/28/24 15:00 12/28/24 15:00 12/28/24 15:00
Physical Exam
General: Comfortable and Conversant
HEENT: Anicteric, Moist mucous membranes and Oxygen (Nasal Cannula)
Respiratory: Wheezes (Diffuse) and Non Labored Respirations
Cardiac: S1/S2 and Regular Rhythm
GI: Soft and Non Tender
Musculoskeletal: No Clubbing and No Cyanosis
Skin: Warm and Dry
Neuro: Awake, Alert and Oriented
Psych: Calm
Laboratory Results
-
12/28/24 13:22
12/28/24 13:22
Laboratory Results
Total Bilirubin Cancelled 12/28/24 13:22
AST Cancelled 12/28/24 13:22
ALT Cancelled 12/28/24 13:22
Alkaline Phosphatase Cancelled 12/28/24 13:22
Troponin I < 0.012 ng/ml 12/28/24 13:22
Chest X-Ray:
Mild left basilar opacity suggesting atelectasis, scarring, and/or pneumonia in the appropriate clinical setting.
Data Reviewed
-
Diagnostic Radiology: Report Reviewed by me
Lab Data: Labs Reviewed by me
Old Records: Reviewed
Impression/Plan
-
Acute Hypoxic Respiratory Insufficiency secondary to Acute Bronchitis
-Continue supplemental oxygen
Acute Bronchitis, suspect Acute COPD Exacerbation
-Suspect patient has underlying COPD given her prior smoking history
-Continue budesonide nebulizer BID
-Continue DuoNeb QID and PRN
-Continue Mucinex
-Patient given azithromycin and ceftriaxone in emergency department - Check procalcitonin, and if negative will hold on further antibiotics
Hyperlipidemia
-Continue atorvastatin
Glaucoma
-Continue dorzolamide - timolol and latanoprost
DVT proph: Lovenox
Code Status: Full Code
[2024-12-28] MEDS: ZITHROMAX INFUSION 250 IV (15:53)
[2024-12-28] MEDS: ROCEPHIN 1000 MG IV (15:53)
[2024-12-28 16:44] LABS: Procalcitonin < 0.05 ng/ml (0.0-0.25)
[2024-12-28] MEDS: PULMICORT 0.5 MG INH (21:16)
[2024-12-28] MEDS: DUONEB 3 ML INH (21:16)
[2024-12-28] MEDS: LOVENOX 40 MG SC (21:43)
[2024-12-28] MEDS: MUCINEX 600 MG PO (21:44)
[2024-12-28] MEDS: TIMOPTIC 0.5% OPHTHALMIC SOLUTION 1 DROP OPHTH (21:44)
[2024-12-28] MEDS: XALATAN OPHTHALMIC SOLUTION 1 DROP BOTH EYES (21:44)
[2024-12-28] MEDS: TRUSOPT 2% OPHTHALMIC SOLUTION 1 DROP BOTH EYES (22:27)
[2024-12-29] MEDS: DECADRON 4 MG IV ×2 (05:09→17:54)
[2024-12-29 07:00] VITALS: BP 139/76
[2024-12-29] MEDS: DUONEB 3 ML INH (07:34)
[2024-12-29] MEDS: PULMICORT 0.5 MG INH ×2 (07:34→19:31)
[2024-12-29 08:00] LABS: Hematocrit 39.8 % (37.0-47.0); Hemoglobin 13.3 g/dL (12.0-16.0); Mean Corp Hgb Conc. 33.4 g/dL (33.0-37.0); Mean Corpuscular Volume 92.3 fL (81.0-99.0); Platelet Count 158 10^3/uL (130-400); Red Cell Dist. Width 13.8 % (11.5-14.5)
--- NOTE | 2024-12-29 08:16 | CON.HOSP ---
Addendum entered and electronically signed by Mundo Mcintosh MD 12/29/24 13:22:
Acute hypoxemic respiratory failure secondary to acute bronchitis plus minus COPD however no formal diagnosis. PFT as an outpatient with pulmonary
Continue steroids however will transition from IV to p.o.
Continue MDIs
Incentive spirometer
Acapella
Per pulmonary note indication for antibiotics as Pro-Ray negative
May consider azithromycin x 5 days which would probably be a great option to be used as a anti-inflammatory more than an antibiotic
Multiple sclerosis which could create a restrictive airway pattern
Only able to diagnose via flow-volume/PFTs
Would have to be completed as outpatient
Pulmonary following
Will need outpatient neurology follow-up as she has not had any since beginning of COV
Hyperlipidemia
Continue statin
Original Note:
Family Physician
-
Family Physician: Tess Garcia
Chief Complaint
-
cough and SOB
History of Present Illness
69yoF PMH MS, glaucoma, HLD, former smoker 30pack years presenting with SOB and cough.
Pt reports running out of her inhaled medication a little while ago, cannot recall timeline, and she began having a cough and SOB. She describes that she began having a cough and then a feeling that it is hard to speak and breath originating from
her mouth but no distinct SOB. reports her speech is at baseline. She states it was hard for her to drink fluids, breath, and talk once her symptoms progressed. Unable to provide exact timeline. Denies vomiting, nausea, chest tightness, fever,
chills, viral prodrome, diarrhea or constipation. She reports the swelling in her legs in baseline but it seems to be slightly worse today. Reports voiding appropriately. Bed bound at baseline, unable to report DIAZ.
Prior hx 30py smoker quit about 10 years ago. Pt denies breathing issues at baseline or diagnosis of COPD despite using budesonide and albuterol at home. Pt is not great historian regarding use of inhalers and names of medications, stating her
sister and daughter help her. Pt is bed bound at baseline with slowly worsening L sided weakness attributed to her MS. She has not seen a neurologist since before 2019 stating she knows she should see one but has not set it up yet. She has not taken
any MS medication since 2019 either. She reports she is unaware of what an MS flare feels like, as her weakness has been slowly progressive.
Pt reports never seeing a fac engineer outpt. She alst saw a fac engineer at her last hospiptal stay. She states she does not have an outpt provider prescribing her budesonide, it was from her last admission.
Medical History
Past Medical History
Past Medical History: Reports Other (MS, glaucoma, HLD)
Past Surgical History: Reports Orthopedic
Social History
Tobacco: Former Smoker (30 pack years, quit 10 years ago)
Living: With Family (daughter and sister help her at home)
Allergies / Home Medications
Allergies reflects when Allergies were last updated in [facility].
Home Medications with original date entered in [facility]
Allergy/Medication List:
azathioprine
Review of Systems
-
History Source: Patient
A 12 point Review of Systems was completed except as noted: Yes
Physical Exam
Vital Signs
Vital Signs
Temp Pulse Resp BP Pulse Ox
97.8 F 87 16 139/76 92
12/29/24 07:00 12/29/24 07:37 12/29/24 07:37 12/29/24 07:00 12/29/24 07:37
Physical Exam
General: Well Developed, Well Nourished and Comfortable; Negative Fever or Sweats
HEENT: Normocephalic, Anicteric, Moist Mucous Membranes and Atraumatic
Respiratory: Clear and Non Labored Respirations
Cardiac: S1/S2, Regular Rhythm and Peripheral Edema (1+, pt states possibly a little worse than baseline)
Breast: Deferred by me
GI: Soft, Non Tender and Non Distended
Musculoskeletal: No Clubbing and No Cyanosis
Skin: Warm and Dry
Neuro: AO x 3 and Nonfocal/Grossly Intact (L sided weakness, loss of r sided dexterity)
Psych: Calm
Laboratory Results
-
Laboratory Results
12/29/24 07:24
Total Bilirubin Cancelled 12/28/24 13:22
AST Cancelled 12/28/24 13:22
ALT Cancelled 12/28/24 13:22
Alkaline Phosphatase Cancelled 12/28/24 13:22
Troponin I < 0.012 ng/ml 12/28/24 13:22
Impression / Plan
-
IMPRESSION:
69yoF PMH MS, glaucoma, HLD, former smoker presenting with cough and SOB after recently running out of home budesonide.
AFVSS. Pt presented with similar symptoms 6 months ago with resolution. She began having this exacerbation once she ran out of her home breathing treatments. No wheezing on exam today, clear bilaterally. CXR demonstrates previous LL
atelectasis/scar. Procalcitonin negative, mild leukocytosis 13.3. Electrolytes WNL. Low suspicion for pneumonia. Negative covid, flu.
Pt has untreated MS, bed bound at baseline. Has never seen a fac engineer outpt or officially been diagnosed with COPD. All breathing treatments were prescriptions that ran out from last hospital admission.
PLAN:
#acute respiratory insufficiency
- Restart home budesonide. PRN Duonebs.
- Continue decadron. Observe off antibiotics.
- Continue to monitor for hypoxia.
- Pulmonology consulted.
- Worse leg swelling. New RBBB in setting of possible COPD. 2D Echo ordered
- Pending echo and pulmonary inputs, can consider discharge today if improved on home budesonide.
#MS
- Stable. Not currently on medication.
#HLD
- continue home statin
#Glaucoma
- continue home eye drops
#obesity
#former smoker
DVT prophylaxis: lovenox
Diet: regular
Disposition: Consider home
[2024-12-29 08:22] LABS: Blood Urea Nitrogen 31 mg/dl (7-17); Calcium 8.9 mg/dl (8.4-10.2); Carbon Dioxide 24 mmol/L (22-30); Chloride 109 mmol/L (98-107); Estimated Creatinine Clearance 73 ml/min; Glucose 139 mg/dl (70-99); Potassium 4.0 mmol/L (3.5-5.1); Sodium 144 mmol/L (135-145); eGFR > 60.00
[2024-12-29] MEDS: MUCINEX 600 MG PO ×2 (08:27→19:30)
[2024-12-29] MEDS: TIMOPTIC 0.5% OPHTHALMIC SOLUTION 1 DROP OPHTH ×2 (08:28→19:30)
[2024-12-29] MEDS: LIPITOR 20 MG PO (08:28)
[2024-12-29] MEDS: TRUSOPT 2% OPHTHALMIC SOLUTION 1 DROP BOTH EYES ×2 (08:31→19:30)
--- NOTE | 2024-12-29 10:54 | CON.PUL ---
Consultation
Consultation Request
Date/Time Consultation Requested: 12/30/2023
Date/Time Consultation Performed: 12/29/2024
Requesting Provider: Dr. Hoffman
Performing Provider: Dr. Jaison Middleton
Reason for Consultation: Acute exacerbation of COPD/acute bronchitis
Medical History
-
History of Present Illness:
69-year-old woman with past medical history significant for multiple sclerosis, glaucoma, former smoker who presents with worsening shortness of breath and coughing. Previous admission for tracheobronchitis in early June 2024 discharged from the
hospital, records reviewed. She was recommended to follow-up but never did.
Returns 12/29/2024 with shortness of breath and coughing. She ran out of budesonide few days ago.
Minimal oxygen saturation.
Chest x-ray showed mid left basilar opacity suggesting atelectasis, scarring or pneumonia. To my view similar to prior.
Placed on antibiotics, nebulizers and IV steroids
We were consulted on 12/29/2024 for evaluation.
Past Medical History
Past Medical History: Other (See assessment and plan)
Social History
Tobacco: Former Smoker (1 pack/day for 30 years)
Alcohol: None
Drug: None
Living: With Family
Occupational Exposures: Denies
Environmental Exposures: Denies
Family History
Family History: Reviewed & Not Pertinent
Allergies / Home Medications
Allergies
Allergy/AdvReac Type Severity Reaction Status Date / Time
azathioprine (From Imuran) Allergy Vomiting Verified 06/04/24 15:47
Home Medications
�Medication �Instructions �Recorded �Confirmed �Last Taken �Type
atorvastatin 20 mg tablet (Lipitor) 20 mg PO DAILY High Cholesterol 06/02/24 12/28/24 12/27/24 History
dorzolamide 22.3 mg-timolol 6.8 1 drp BOTH EYES BID Eye Condition 06/02/24 12/28/24 12/28/24 History
mg/mL eye drops
latanoprost 0.005 % eye drops 1 drp BOTH EYES HS Eye Condition 06/02/24 12/28/24 12/27/24 History
albuterol sulfate 90 mcg/actuation 2 puff inhalation R Q6HPRN PRN 12/28/24 12/28/24 Unknown History
aerosol inhaler shortness of breath or wheezing
budesonide 0.5 mg/2 mL suspension 0.5 mg inhalation R BID 12/28/24 12/28/24 12/27/24 History
for nebulization Lung/Breathing Issues
guaifenesin 200 mg tablet 200 mg PO BIDPRN PRN cough 12/28/24 12/28/24 12/27/24 History
Review of Systems
-
History Source: Patient
All other systems: Negative unless noted
Vitals / Labs / Diagnostic Testing
Vital Signs
Temp Pulse Resp BP Pulse Ox
97.8 F 87 16 139/76 92
12/29/24 07:00 12/29/24 07:37 12/29/24 07:37 12/29/24 07:00 12/29/24 07:37
Lab Data
12/29/24 07:24
12/29/24 07:24
Microbiology
12/28/24 13:53 Nasal Swab Influenza Types A & B (SHEBA) - Final
Negative for Influenza A & B, NAAT
Negative results must be combined with clinical observations
and patient history.
Nucleic Acid Amplification test (NAAT)performed on the
[employer] platform.
Diagnostic Testing:
Physical Exam
-
HEENT: Normocephalic
Cardiovascular: Regular Rhythm
Respiratory: Clear and Non-Labored Respirations
GI: Soft and Non Distended
Neurology: Awake and Alert
Skin: Warm
General: Comfortable
Assessment
-
69-year-old woman with past medical history noted. Admitted with mild hypoxemia, cough and shortness of breath similar to admission from June 2024. Chest x-ray with minimal abnormality in the left lower lobe. Admitted for possible acute
exacerbation of COPD.
During last admission she was recommended to follow-up with pulmonary but never followed through.
We were consulted on 12/29/2024.
Acute respiratory insufficiency-suspect acute bronchitis/agree possible exacerbation of COPD.
Chest x-ray 12/28/2024: Mild left basilar opacity suggesting atelectasis or scarring. To my view similar to prior in May 2024.
Negative procalcitonin
proBNP 54-less likely cardiac etiology.
Acute respiratory sufficiency due to above-3 L nasal cannula
Leukocytosis-suspect steroid reaction
Conditions present prior admission:
Admission to [facility] 06/2024 acute respiratory insufficiency/acute tracheobronchitis/possible COPD
Admission to the hospital April 2023-with C. difficile diarrhea
Chronic aspiration cannot be ruled out with history of MS.-Swallowing evaluation 04/13/2023 without evidence of overt aspiration.
Multiple sclerosis, not on treatment as she stopped this herself without the recommendation of a neurologist (as per the patient)
History of glaucoma
Hypercholesterolemia
Left knee surgery
Chronic dysphagia, based on previous speech pathology evaluation-modified diet recommended at that time.
Obesity
Former smoker 63-fkau-sawd history
Assessment and plan:
Agree, clinical picture suggestive of acute bronchitis-possibly viral/bacterial.
Cannot rule out microaspiration given underlying MS-nonambulatory, poor dentition, not being followed up for her MS in the outpatient setting.
Patient states that she has difficulty getting out of the house and follow-up with doctors.
-
Negative procalcitonin-makes bacterial pneumonia less likely
To my view chest x-ray appears similar to April 2023 and May 2024
Given persistently abnormality in the left lower lobe suggest in the outpatient setting after she recovers obtaining a CT of the chest.
-
Suspect patient has underlying COPD. No PFT available. Patient unable to follow-up due to mobility issues, only goes from her wheelchair to her bed. Nonambulatory
Microbiology evaluation so far negative
MRSA screening pending-previously negative
Influenza and COVID-negative
Unable to produce sputum
-
No evidence for metabolic alkalosis to suggest chronic CO2 retention.
-
Okay to hold antibiotics and observe with negative Pro-Ray.
If continues to have bronchitic symptoms not unreasonable to complete 5 days of azithromycin orally.
-
Continue budesonide/DuoNeb-should be discharged on this medication. Hopefully can follow-up in the outpatient and we can adjust therapy as necessary
IV dexamethasone--can transition to prednisone soon
Continue mucolytics
Incentive spirometry encouraged.
-.
Provide oxygen to maintain pulse ox above 90%. Currently on 2-3 L.
Increase activity as able
Wean down as able
-
Microaspiration can occur in patient with MS.
Previous speech evaluation during last admission recommended modified diet.
Records reviewed and in April 2023 there is no evidence for aspiration.
May need to be reevaluated this admission. Cannot rule out progression of MS.
Will continue to monitor
-
DVT prophylaxis subcu Lovenox
-
Will follow
-
Again, information to follow-up in our office will be left in the chart-patient states that she has difficulty with logistics to move out of the house. This will be difficult, I discussed this with case management and nursing
--- NOTE | 2024-12-29 11:30 | PTCARENOTE ---
Addendum entered by Ashlyn Burgos RN 12/29/24 17:29:
at 1045, pt developed 'tickle in throat' and verbalized that fruit got stuck on roof of mouth, but denied difficulty swallowing. afterwards, patient coughing large amount of clear mucous up. lungs with scattered rhonchi that cleared after
coughing. not sure if patient aspirated at that time. maintained on 3L NC with sao2 95%, Room air sat 85% at rest. no sob at rest. discussed with Dr. Middleton. will consult speech therapy to jd, will continue to monitor.
Original Note:
pt developed 'tickle in throat' and verbalized that fruit got stuck on roof of mouth, but denied difficulty swallowing. afterwards, patient coughing large amount of clear mucous up. lungs with scattered rhonchi that cleared after coughing. not
sure if patient aspirated at that time. maintained on 3L NC with sao2 95%, Room air sat 85% at rest. no sob at rest. discussed with Dr. Middleton. will consult speech therapy to jd, will continue to monitor.
[2024-12-29 15:00] VITALS: BP 119/44
--- NOTE | 2024-12-29 15:46 | PTOTSP ---
Dysphagia Evaluation:
Given PMH (MS, COPD), current PNA, and coughing w/ PO trial during bedside swallow exam, pt presents w/ acute and chronic and risk factors for dysphagia. Instrumental swallow study is recommended to rule out aspiration given risk factors and current
presentation.
Recommendations:
1. IDDSI 6, Thins (single sips)
2. Medications as best tolerated
3. Partial assistance/supervision w/ meals.
4. Strategies: Single sips/small bites, slowed rate of eating, sitting upright, alternating liquid washes
5. Instrumental swallow study (VSE) to objectively determine aspiration occurrence and identify appropriate diet level.
[2024-12-29] MEDS: LOVENOX 40 MG SC (17:53)
[2024-12-29 20:07] LABS: Hepatitis C Antibody Negative (Negative)
--- NOTE | 2024-12-29 20:48 | PTCARENOTE ---
Pt. wants to brush teeth in the morning.
[2024-12-29] MEDS: XALATAN OPHTHALMIC SOLUTION 1 DROP BOTH EYES (21:04)
[2024-12-29 23:00] VITALS: BP 127/64
[2024-12-30] MEDS: DECADRON 4 MG IV ×2 (05:13→17:05)
[2024-12-30 07:00] VITALS: BP 125/74
[2024-12-30 07:09] LABS: Hematocrit 38.9 % (37.0-47.0); Hemoglobin 13.0 g/dL (12.0-16.0); Mean Corp Hgb Conc. 33.4 g/dL (33.0-37.0); Mean Corpuscular Volume 92.6 fL (81.0-99.0); Platelet Count 178 10^3/uL (130-400); Red Cell Dist. Width 14.0 % (11.5-14.5)
--- NOTE | 2024-12-30 07:22 | W.PN.HOSP.TC ---
Addendum entered and electronically signed by Mundo Mcintosh MD 12/31/24 12:11:
see update note
Original Note:
Today's Communication/Plan
-
Plan reviewed with attending
Continue IV steroids
begin azithromycin
swallow study for microaspiration. Pt does not want feeding tube if recommended.
Assessment / Plan
Assessment / Plan
IMPRESSION:
69yoF PMH MS, glaucoma, HLD, former smoker presenting with cough and SOB after recently running out of home budesonide.
AFVSS. Continues on oxygen. Pt presented with similar symptoms 6 months ago with resolution. She began having this exacerbation once she ran out of her home breathing treatments. Pt was slightly more rhonchus today before breathing treatments. CXR
demonstrates previous LL atelectasis/scar. Procalcitonin negative, mild leukocytosis resolving. Electrolytes WNL. Negative covid, flu.
Pt has untreated MS, bed bound at baseline. Has never seen a body design checker outpt or officially been diagnosed with COPD. All breathing treatments were prescriptions that ran out from last hospital admission. Not on home oxygen.
GOC conversations started. Requested to be DNR. Stated she would not want a feeding tube if recommended.
Pt reports coughing with eating. I spoke with Daughter Bhavani on the phone who reports fairly regular coughing and choking with eating. We had a discussion regarding her mother's barriers to outpt follow up. Pt's family is unable to transport her
to and from doctors offices, so she would have to be reliant on a transportation service due to her wheelchair. It seems like her PCP generally does telehealth visits with visiting nurses for bloodwork and care. We discussed that her PCP could
refill the budesonide. Bhavani also stated that it has been longer than before covid when her mother saw a neurologist. She is unsure, beyond transportation, how to better encourage better follow up.
PLAN:
#acute respiratory insufficiency
#acute bronchitis
#dysphagia
- Restart home budesonide. PRN Duonebs.
- Continue decadron.
- Begin azithromycin for 5 days
- Continue to monitor for hypoxia.
- Pulmonology recommendations appreciated.
- Leg swelling. New RBBB in setting of possible COPD. 2D Echo demonstrated normal EF, no acute findings.
- Pending video swallow study per speech recs. concern for microaspiration in setting of MS
- Wean oxygen
- encourage IS
#MS
- Not currently on medication.
- Concern for microaspiration.
- Needs outpt follow up
#HLD
- continue home statin
#Glaucoma
- continue home eye drops
#obesity
#former smoker
DVT prophylaxis: lovenox
Diet: regular
Disposition: Home
Anticipated Discharge: Within 24 hours
Subjective/Interval History
-
Date of Service: December 30, 2024
Pt reports worsened cough with eating. She denies worse SOB.
Objective Data
-
Labs:
Laboratory Results
12/30/24
06:35
WBC 11.4 H
Hgb 13.0
Hct 38.9
Plt Count 178
Sodium 145
Potassium 3.8
Chloride 110 H
Carbon Dioxide 27
BUN 31 H
Creatinine 0.5 L
Glucose 113 H
Calcium 9.0
Total Bilirubin 0.8
AST 23
ALT 24
Alkaline Phosphatase 124
Vital Signs:
Vital Signs
Temp Pulse Resp BP Pulse Ox
97.9 F 90 18 125/74 90
12/30/24 07:00 12/30/24 07:57 12/30/24 07:57 12/30/24 07:00 12/30/24 07:57
I&O
12/29/24 12/30/24 12/31/24
06:59 06:59 06:59
Intake Total 480 / 480 1100 / 1100
Balance 480 / 480 1100 / 1100
Physical Exam
-
General: Well Developed, Well Nourished and No Apparent Distress
HEENT: Normocephalic, Atraumatic and Moist Mucous Membranes
Respiratory: Rhonchi (basilar, coughing)
Cardiac: Regular Rhythm and S1/S2
GI: Soft, Nontender and Nondistended
Musculoskeletal: No Edema (1+, pt stated baseline)
Skin: Warm and Dry
Neuro: AO x 3 and Nonfocal/Grossly Intact (at baseline L sided weakness)
Psych: Calm
[2024-12-30 07:38] LABS: ALT (SGPT) 24 U/L (0-35); AST (SGOT) 23 U/L (14-36); Albumin 3.9 g/dl (3.5-5.0); Alkaline Phosphatase 124 U/L (38-126); Blood Urea Nitrogen 31 mg/dl (7-17); Calcium 9.0 mg/dl (8.4-10.2); Carbon Dioxide 27 mmol/L (22-30); Chloride 110 mmol/L (98-107); Estimated Creatinine Clearance 73 ml/min; Glucose 113 mg/dl (70-99); Potassium 3.8 mmol/L (3.5-5.1); Sodium 145 mmol/L (135-145); Total Protein 7.1 g/dl (6.3-8.2); eGFR > 60.00
[2024-12-30] MEDS: PULMICORT 0.5 MG INH ×2 (07:51→19:34)
[2024-12-30] MEDS: LIPITOR 20 MG PO (08:03)
[2024-12-30] MEDS: MUCINEX 600 MG PO ×2 (08:03→20:24)
[2024-12-30] MEDS: TIMOPTIC 0.5% OPHTHALMIC SOLUTION 1 DROP OPHTH ×2 (08:03→20:24)
--- NOTE | 2024-12-30 08:08 | CM ---
late note from 10/28/24
Patient seen at bedside
IA completed
Lives with her daughter and sister in a 2 story home, 1st floor set up with bed/full shower, 3 IBRAHIMA in front, 0 IBRAHIMA in back
PLOF: wheelchair
DME: Hospital bed, CPAP (does not recall vendor), nebulizer, does not use home oxygen
on oxygen currently
Has had [facility] in past, [place] in past
PCP: Tess Garcia [facility]
Pharmacy: [facility]
PLAN: TBD, follow hospital progress, CM to follow for needs
[2024-12-30] MEDS: TRUSOPT 2% OPHTHALMIC SOLUTION 1 DROP BOTH EYES ×2 (08:10→20:24)
--- NOTE | 2024-12-30 11:20 | W.PN.PUL3 ---
Today's Communication / Plan
-
Continue nebulizer therapy without change.
Will add azithromycin orally for her bronchitic symptoms for 5 days.
Incentive spirometry
Wean down FiO2
Maintain IV corticosteroid for today
Swallowing evaluation
Will follow
Assessment
-
69-year-old woman with past medical history noted. Admitted with mild hypoxemia, cough and shortness of breath similar to admission from June 2024. Chest x-ray with minimal abnormality in the left lower lobe. Admitted for possible acute
exacerbation of COPD.
During last admission she was recommended to follow-up with pulmonary but never followed through.
We were consulted on 12/29/2024.
Acute respiratory insufficiency-suspect acute bronchitis/agree possible exacerbation of COPD.
Chest x-ray 12/28/2024: Mild left basilar opacity suggesting atelectasis or scarring. To my view similar to prior in May 2024.
Negative procalcitonin
proBNP 54-less likely cardiac etiology.
Acute respiratory sufficiency due to above-3 L nasal cannula
Leukocytosis-suspect steroid reaction
Conditions present prior admission:
Admission to [facility] 06/2024 acute respiratory insufficiency/acute tracheobronchitis/possible COPD
Admission to the hospital April 2023-with C. difficile diarrhea
Chronic aspiration cannot be ruled out with history of MS.-Swallowing evaluation 04/13/2023 without evidence of overt aspiration.
Multiple sclerosis, not on treatment as she stopped this herself without the recommendation of a neurologist (as per the patient)
History of glaucoma
Hypercholesterolemia
Left knee surgery
Chronic dysphagia, based on previous speech pathology evaluation-modified diet recommended at that time.
Obesity
Former smoker [id number] history
Assessment and plan:
Agree, clinical picture suggestive of acute bronchitis-possibly viral/bacterial.
Cannot rule out microaspiration given underlying MS-nonambulatory, poor dentition, not being followed up for her MS in the outpatient setting.
Patient states that she has difficulty getting out of the house and follow-up with doctors.
-
Negative procalcitonin-makes bacterial pneumonia less likely
To my view chest x-ray appears similar to April 2023 and May 2024
Given persistently abnormality in the left lower lobe suggest in the outpatient setting after she recovers obtaining a CT of the chest.
-
Suspect patient has underlying COPD. No PFT available. Patient unable to follow-up due to mobility issues, only goes from her wheelchair to her bed. Nonambulatory
Microbiology evaluation so far negative
MRSA screening pending-previously negative
Influenza and COVID-negative
Unable to produce sputum
-
Mild hypoxemic respiratory sufficiency-currently on 3 L supplemental oxygen. Wean off as able.
Mildly bronchospastic on exam
Thin phlegm production this morning
IS if able
No evidence for metabolic alkalosis to suggest chronic CO2 retention.
-
Continue to hold antibiotics and observe with negative Pro-Ray.
If continues to have bronchitic symptoms not unreasonable to complete 5 days of azithromycin orally. Currently hold.
-
Continue budesonide/DuoNeb-should be discharged on this medication. Hopefully can follow-up in the outpatient and we can adjust therapy as necessary
IV dexamethasone--can transition to prednisone next 24 hours if she continues to improve
Will add azithromycin for 5 days-continues to have bronchitic symptoms. May help with anti-inflammatory properties as well.
Continue mucolytics
Incentive spirometry encouraged.
-.
Provide oxygen to maintain pulse ox above 90%. Currently on 2-3 L.(Usually not on oxygen supplementation at home)
Increase activity as able
Wean down as able
-
Microaspiration can occur in patient with MS.
Previous speech evaluation during last admission recommended modified diet.
Records reviewed and in April 2023 there is no evidence for aspiration.
on MOdified diet - high risk for aspiration. Eventual VSE
-
Will continue to monitor
-
DVT prophylaxis subcu Lovenox
-
Will follow
-
Again, information to follow-up in our office will be left in the chart-patient states that she has difficulty with logistics to move out of the house. This will be difficult, I discussed this with case management and nursing
Subjective Data
-
Date of Service:
Date of Service: December 30, 2024
Chief Complaint: Pulmonary Follow Up (Acute Bronchitis)
Subjective:
Continues to report intermittent coughing
This morning with also coughing whitish phlegm production
Denies hemoptysis
Review of Systems
Cardiopulmonary: Dyspnea (none at rest), Cough, Sputum Production and Wheezing
Objective Data
Data Reviewed
Vital Signs / I&O / Oxygen:
Vital Signs
Temp Pulse Resp BP Pulse Ox
97.9 F 90 18 125/74 90
12/30/24 07:00 12/30/24 07:57 12/30/24 07:57 12/30/24 07:00 12/30/24 07:57
Intake and Output
12/29/24 12/30/24 12/31/24
06:59 06:59 06:59
Intake Total 480 / 480 1100 / 1100
Balance 480 / 480 1100 / 1100
SaO2 90
Nasal Cannula flow liters per 3
minute
Physical Exam
General: Comfortable
HEENT: Normocephalic
Cardiovascular: S1-S2
Respiratory: Wheeze (mild expiratory), Rhonchi (Mild bilateral) and Non-Labored Respirations
GI: Soft and Non Distended
Neurology: Awake, Alert and Other (generalized muscle weakness - MS)
Skin: Warm
Labs/Micro/Reports
Lab Data
12/30/24 06:35
12/30/24 06:35
Microbiology
12/28/24 21:46 Nose MRSA Screen - Final
No Methicillin Resistant Staphylococcus aureus isolated.
12/28/24 13:53 Nasal Swab Influenza Types A & B (SHEBA) - Final
Negative for Influenza A & B, NAAT
Negative results must be combined with clinical observations
and patient history.
Nucleic Acid Amplification test (NAAT)performed on the
[employer] platform.
[2024-12-30] MEDS: ZITHROMAX 500 MG PO (11:46)
--- NOTE | 2024-12-30 13:20 | PTOTSP ---
Speech Language Pathology
VIDEOFLUOROSCOPIC SWALLOWING EXAMINATION (VSE) completed. Mild oral and mod pharyngeal dysphagia noted. Frequent penetration/aspiration noted, at times silent. Etiology of dysphagia is likely MS.
Recommend:
(1) IDDSI Level 4 (Puree) and Thin Liquids
(2) Aspiration precautions: liquids via single cup sips only (no straws), sit upright, slow rate
(3) If signs of aspiration with modified diet, will need to consider GOC discussions, as thickened liquids aspirated on VSE and are not a good option for pt
(4) Meds whole in puree
(5) BOWLING FLOOR MANAGER to continue to follow
--- NOTE | 2024-12-30 13:37 | W.PN.UPDATE ---
Update Note
Progress Note Update
Acute hypoxemic respiratory failure secondary to acute aspiration along with bronchitis plus minus COPD however no formal diagnosis. PFT as an outpatient with pulmonary
Continue steroids however will transition from IV to p.o.
Continue MDIs
Incentive spirometer
Acapella
Azithromycin x4days
Speech consult
VSE
-If demonstrating aspiration then she would not want a Feeding tube and would move to Hospice
Multiple sclerosis which could create a restrictive airway pattern
Only able to diagnose via flow-volume/PFTs
Would have to be completed as outpatient
Pulmonary following
Will need outpatient neurology follow-up as she has not had any since beginning of COVID
Hyperlipidemia
Continue statin
Advanced care planning time spent 36mins
-Discussed at bedside code status and feeding tube
-Daughter Bhavani called over the phone provided update as well
--- NOTE | 2024-12-30 14:52 | CM ---
Patient seen at bedside
Information on transportation given to client
patient continues on oxygen
Video Swallow today
per hospitalist updated note if demonstrating aspiration then she would not want a Feeding tube and would move to Hospice
PLAN: tbd, based on GOC discussions, CM to follow for needs
[2024-12-30 15:00] VITALS: BP 135/64
[2024-12-30] MEDS: LOVENOX 40 MG SC (17:05)
[2024-12-30] MEDS: XALATAN OPHTHALMIC SOLUTION 1 DROP BOTH EYES (20:24)
[2024-12-30 23:28] VITALS: BP 150/73
[2024-12-31] MEDS: DECADRON 4 MG IV ×2 (05:08→17:15)
[2024-12-31 07:34] LABS: Hematocrit 40.4 % (37.0-47.0); Hemoglobin 13.6 g/dL (12.0-16.0); Mean Corp Hgb Conc. 33.7 g/dL (33.0-37.0); Mean Corpuscular Volume 92.7 fL (81.0-99.0); Platelet Count 184 10^3/uL (130-400); Red Cell Dist. Width 13.7 % (11.5-14.5)
--- NOTE | 2024-12-31 07:34 | W.PN.HOSP.TC ---
Addendum entered and electronically signed by Mundo Mcintosh MD 12/31/24 12:11:
consult hospice
conitgnue Go[facility]
video swallow confirmed aspiration
Original Note:
Today's Communication/Plan
-
Plan reviewed with attending.
Hospice consulted
GOC ongoing
Assessment / Plan
Assessment / Plan
IMPRESSION:
69yoF PMH MS, glaucoma, HLD, former smoker presenting with cough and SOB after recently running out of home budesonide.
AFVSS. Continues on oxygen. Pt presented with similar symptoms 6 months ago with resolution. She began having this exacerbation once she ran out of her home breathing treatments. Pt was slightly more rhonchus today before breathing treatments. CXR
demonstrates previous LL atelectasis/scar. Procalcitonin negative, mild leukocytosis resolving. Electrolytes WNL. Negative covid, flu.
Pt has untreated MS, bed bound at baseline. Has never seen a delivery coordinator outpt or officially been diagnosed with COPD. All breathing treatments were prescriptions that ran out from last hospital admission. Not on home oxygen.
GOC conversations started. Requested to be DNR. Stated she would not want a feeding tube if recommended.
Pt reports coughing with eating. I spoke with Daughter Bhavani on the phone who reports fairly regular coughing and choking with eating. We had a discussion regarding her mother's barriers to outpt follow up. Pt's family is unable to transport her
to and from doctors offices, so she would have to be reliant on a transportation service due to her wheelchair. It seems like her PCP generally does telehealth visits with visiting nurses for bloodwork and care. We discussed that her PCP could
refill the budesonide. Bhavani also stated that it has been longer than before covid when her mother saw a neurologist. She is unsure, beyond transportation, how to better encourage better follow up.
Continued GOC. Aspirating on all consistencies. Hospice consulted.
PLAN:
#acute respiratory insufficiency
#acute bronchitis
#dysphagia
- Restart home budesonide. PRN Duonebs.
- Continue decadron.
- Begin azithromycin for 5 days
- Continue to monitor for hypoxia.
- Pulmonology recommendations appreciated.
- Leg swelling. New RBBB in setting of possible COPD. 2D Echo demonstrated normal EF, no acute findings.
- Evidence of aspiration
- Wean oxygen
- encourage IS
#MS
- Not currently on medication.
- Concern for microaspiration.
- Needs outpt follow up
#HLD
- continue home statin
#Glaucoma
- continue home eye drops
#obesity
#former smoker
DVT prophylaxis: lovenox
Diet: regular
Disposition: Home
Anticipated Discharge: Within 24 hours
Subjective/Interval History
-
Date of Service: December 31, 2024
Pt reports continued coughing and aspiration with eating. She reports taking a sip of water with choking with continued sputum production.
Objective Data
-
Labs:
Laboratory Results
12/31/24
06:56
WBC 9.0
Hgb 13.6
Hct 40.4
Plt Count 184
Sodium 148 H
Potassium 3.8
Chloride 109 H
Carbon Dioxide 31 H
BUN 35 H
Creatinine 0.5 L
Glucose 115 H
Calcium 9.2
Vital Signs:
Vital Signs
Temp Pulse Resp BP Pulse Ox
97.6 F 72 16 171/70 91
12/31/24 08:36 12/31/24 08:36 12/31/24 08:36 12/31/24 08:36 12/31/24 08:36
I&O
12/30/24 12/31/24 01/01/25
06:59 06:59 06:59
Intake Total 1100 / 1100 940 / 940
Balance 1100 / 1100 940 / 940
Physical Exam
-
General: Well Developed, Well Nourished, Comfortable and Appears Chronically Ill
HEENT: Normocephalic, Atraumatic, Moist Mucous Membranes, Anicteric, Oxygen and Other (producing sputum)
Respiratory: Clear to Auscultation and Rhonchi (basliar)
Cardiac: Regular Rhythm and S1/S2
GI: Soft and Nontender
Musculoskeletal: No Clubbing
Skin: Warm and Dry
Neuro: AO x 3 and Nonfocal/Grossly Intact (baseline weakness)
Psych: Calm and Anxious (worried about prognosis)
[2024-12-31] MEDS: PULMICORT 0.5 MG INH ×2 (07:40→19:25)
[2024-12-31] MEDS: MUCINEX 600 MG PO ×2 (07:51→20:17)
[2024-12-31] MEDS: ZITHROMAX 500 MG PO (07:51)
[2024-12-31] MEDS: LIPITOR 20 MG PO (07:51)
[2024-12-31] MEDS: TRUSOPT 2% OPHTHALMIC SOLUTION 1 DROP BOTH EYES ×2 (07:52→20:17)
[2024-12-31] MEDS: TIMOPTIC 0.5% OPHTHALMIC SOLUTION 1 DROP OPHTH ×2 (07:52→20:17)
[2024-12-31 08:17] LABS: Blood Urea Nitrogen 35 mg/dl (7-17); Calcium 9.2 mg/dl (8.4-10.2); Carbon Dioxide 31 mmol/L (22-30); Chloride 109 mmol/L (98-107); Estimated Creatinine Clearance 73 ml/min; Glucose 115 mg/dl (70-99); Potassium 3.8 mmol/L (3.5-5.1); Sodium 148 mmol/L (135-145); eGFR > 60.00
[2024-12-31 08:36] VITALS: BP 171/70
--- NOTE | 2024-12-31 14:20 | CM ---
Hospice consult received due to pt aspirating all consistencies. Referral sent to Hospice for evaluation for IP hospice eval.
--- NOTE | 2024-12-31 16:05 | HOSPNOTE ---
Hospice referral received. Spoke to daughter Bhavani. Plan is for in person intro tomorrow between 11-12 with patient and Bhavani by phone. Will provide more information after meeting. CM, Attending and Primary RN aware.
[2024-12-31 16:23] VITALS: BP 122/66
--- NOTE | 2024-12-31 16:45 | W.PN.PUL3 ---
Today's Communication / Plan
-
Continue nebulizer therapy without change.
DC home on Budesonide BID + DuoNebs q4hr prn
Azithromycin orally for her bronchitic symptoms for 5 days.
Incentive spirometry encouraged, as tolerated
Wean down supplemental O2 rate as tolerated, keeping SpO2 >88%
Maintain IV corticosteroid for today, weaning as she clinically improves
Diet as per HERBARIUM WORKER
Will follow
Assessment
-
69-year-old woman with past medical history noted. Admitted with mild hypoxemia, cough and shortness of breath similar to admission from June 2024. Chest x-ray with minimal abnormality in the left lower lobe. Admitted for possible acute
exacerbation of COPD.
During last admission she was recommended to follow-up with pulmonary but never followed through.
We were consulted on 12/29/2024.
Acute respiratory insufficiency-suspect acute bronchitis/agree possible exacerbation of COPD.
Chest x-ray 12/28/2024: Mild left basilar opacity suggesting atelectasis or scarring. To my view similar to prior in May 2024.
Negative procalcitonin
proBNP 54-less likely cardiac etiology.
Acute respiratory sufficiency due to above-3 L nasal cannula
Leukocytosis-suspect steroid reaction
Conditions present prior admission:
Admission to [facility] 06/2024 acute respiratory insufficiency/acute tracheobronchitis/possible COPD
Admission to the hospital April 2023-with C. difficile diarrhea
Chronic aspiration cannot be ruled out with history of MS.-Swallowing evaluation 04/13/2023 without evidence of overt aspiration.
Multiple sclerosis, not on treatment as she stopped this herself without the recommendation of a neurologist (as per the patient)
History of glaucoma
Hypercholesterolemia
Left knee surgery
Chronic dysphagia, based on previous speech pathology evaluation-modified diet recommended at that time.
Obesity
Former smoker [id number] history
Assessment and plan
Agree, clinical picture suggestive of acute bronchitis-possibly viral/bacterial.
Cannot rule out microaspiration given underlying MS-nonambulatory, poor dentition, not being followed up for her MS in the outpatient setting.
Patient states that she has difficulty getting out of the house and follow-up with doctors.
-
Negative procalcitonin-makes bacterial pneumonia less likely
To my view chest x-ray appears similar to April 2023 and May 2024, although it was slightly opacification in the retrocardiac region, possibly atelectasis from mucous
Given persistently abnormality in the left lower lobe suggest in the outpatient setting after she recovers obtaining a CT of the chest.
-
Suspect patient has underlying COPD. No PFT available. Patient unable to follow-up due to mobility issues, only goes from her wheelchair to her bed. Nonambulatory
Microbiology evaluation so far negative
MRSA screen negative
Influenza and COVID-negative
Follow up sputum Cx
-
Mild hypoxemic respiratory sufficiency-currently on 3 L supplemental oxygen. Wean off as able.
Mildly bronchospastic on exam - this has improved
Considering that patient has continued phlegm production with wheezing, start DuoNebs TID
She says she has a nebulizer machine at home - we should prescribe DuoNebs to be given to her upon discharge
IS if able
Continue zithromax x 5 days, May help with anti-inflammatory properties as well.
-
Continue budesonide/DuoNeb-should be discharged on this medication. Hopefully can follow-up in the outpatient and we can adjust therapy as necessary
IV dexamethasone--can transition to prednisone next 24 hours if she continues to improve
Continue mucolytics
Incentive spirometry encouraged.
-.
Provide oxygen to maintain pulse ox above 90%. Currently on 2-3 L.(Usually not on oxygen supplementation at home)
Can attempt ambulatory pulse oximetry prior to discharge if patient can ambulate, otherwise titrate down O2 as tolerated and discharge home on whatever she needs to maintain SpO2 >88%
Increase activity as able
-
Microaspiration can occur in patient with MS.
Previous speech evaluation during last admission recommended modified diet.
Records reviewed and in April 2023 there is no evidence for aspiration.
VAC on 12/30 showed mild oral and moderate pharyngeal dysphagia with frequent penetration/aspiration noted at times silent. Continue pur�ed diet with thin liquids
Continue aspiration precautions, keeping HOB >30-45�
-
DVT prophylaxis subcu Lovenox
-
Will follow
-
Again, information to follow-up in our office will be left in the chart-patient states that she has difficulty with logistics to move out of the house. This will be difficult, Dr. Middleton discussed this with case management and nursing
Total time spent today was 38 minutes for this encounter. Time includes reviewing laboratory test/imaging results, reviewing pertinent medical records, obtaining and reviewing medical history, performing an appropriate exam, ordering medications,
tests and procedures. Time also includes documentation of this encounter, coordinating patient care and communicating with other healthcare professionals. Total time does not include separately billed tests performed on this date of service.
Subjective Data
-
Date of Service:
Date of Service: December 31, 2024
Chief Complaint: Pulmonary Follow Up (Acute Bronchitis)
Subjective:
Patient was seen and evaluated today bedside. (Late note entry). Still having mucus production with coughing. Also endorses wheezing with occasional SOB. Currently denies chest pain, JORDAN, nausea, fevers or chills.
Review of Systems
General: Other (Negative unless mentioned above)
Objective Data
Data Reviewed
Vital Signs / I&O / Oxygen:
Vital Signs
Temp Pulse Resp BP Pulse Ox
97.6 F 72 16 171/70 91
12/31/24 08:36 12/31/24 08:36 12/31/24 08:36 12/31/24 08:36 12/31/24 08:36
Intake and Output
12/30/24 12/31/24 01/01/25
06:59 06:59 06:59
Intake Total 1100 / 1100 940 / 940
Balance 1100 / 1100 940 / 940
SaO2 91
Nasal Cannula flow liters per 4
minute
Physical Exam
General: Respiratory Distress (negative), Comfortable and Chills (negative)
HEENT: Normocephalic and Anicteric
Cardiovascular: S1-S2 and Peripheral Edema (negative)
Respiratory: Wheeze (negative), Rhonchi (Mild bilateral upon expiration), Non-Labored Respirations, Stridor (negative) and Other (Coarse breath sounds heard bilaterally)
GI: Soft, Non Distended, Non Tender and Normal Bowel Sounds
Neurology: Awake, Alert and Other (generalized muscle weakness - MS)
Skin: Warm, Dry, Cyanosis (negative) and Jaundice (negative)
Labs/Micro/Reports
Lab Data
12/31/24 06:56
12/31/24 06:56
Microbiology
12/30/24 09:21 Sputum Respiratory Culture - Final
12/30/24 09:21 Sputum Gram Stain - Final
12/28/24 21:46 Nose MRSA Screen - Final
No Methicillin Resistant Staphylococcus aureus isolated.
12/28/24 13:53 Nasal Swab Influenza Types A & B (SHEBA) - Final
Negative for Influenza A & B, NAAT
Negative results must be combined with clinical observations
and patient history.
Nucleic Acid Amplification test (NAAT)performed on the
[employer] platform.
[2024-12-31] MEDS: LOVENOX 40 MG SC (17:16)
[2024-12-31] MEDS: DUONEB 3 ML INH (19:25)
[2024-12-31] MEDS: XALATAN OPHTHALMIC SOLUTION 1 DROP BOTH EYES (20:17)
[2024-12-31 23:12] VITALS: BP 149/68
[2025-01-01] MEDS: DECADRON 4 MG IV ×2 (05:53→17:11)
[2025-01-01 07:00] VITALS: BP 152/68
[2025-01-01 07:01] LABS: Hematocrit 41.7 % (37.0-47.0); Hemoglobin 13.9 g/dL (12.0-16.0); Mean Corp Hgb Conc. 33.3 g/dL (33.0-37.0); Mean Corpuscular Volume 91.6 fL (81.0-99.0); Platelet Count 208 10^3/uL (130-400); Red Cell Dist. Width 13.4 % (11.5-14.5)
[2025-01-01 07:24] LABS: Blood Urea Nitrogen 36 mg/dl (7-17); Calcium 9.0 mg/dl (8.4-10.2); Carbon Dioxide 32 mmol/L (22-30); Chloride 108 mmol/L (98-107); Estimated Creatinine Clearance 73 ml/min; Glucose 107 mg/dl (70-99); Potassium 3.8 mmol/L (3.5-5.1); Sodium 147 mmol/L (135-145); eGFR > 60.00
[2025-01-01] MEDS: DUONEB 3 ML INH ×3 (07:27→19:06)
[2025-01-01] MEDS: PULMICORT 0.5 MG INH ×2 (07:27→19:06)
[2025-01-01] MEDS: ZITHROMAX 500 MG PO (08:22)
[2025-01-01] MEDS: MUCINEX 600 MG PO ×2 (08:22→19:56)
[2025-01-01] MEDS: TIMOPTIC 0.5% OPHTHALMIC SOLUTION 1 DROP OPHTH ×2 (08:23→19:56)
[2025-01-01] MEDS: LIPITOR 20 MG PO (08:23)
[2025-01-01] MEDS: TRUSOPT 2% OPHTHALMIC SOLUTION 1 DROP BOTH EYES ×2 (08:23→19:56)
--- NOTE | 2025-01-01 09:10 | W.PN.HOSP.TC ---
Addendum entered and electronically signed by Mundo Mcintosh MD 01/01/25 11:51:
for home petey cruz working on this
Original Note:
Today's Communication/Plan
-
Plan reviewed with attending.
GOC.
Assessment / Plan
Assessment / Plan
IMPRESSION:
69yoF PMH MS, glaucoma, HLD, former smoker presenting with cough and SOB after recently running out of home budesonide.
AFVSS. Continues on oxygen. Pt presented with similar symptoms 6 months ago with resolution. She began having this exacerbation once she ran out of her home breathing treatments. Pt was slightly more rhonchus today before breathing treatments. CXR
demonstrates previous LL atelectasis/scar. Procalcitonin negative, mild leukocytosis resolving. Electrolytes WNL. Negative covid, flu.
Pt has untreated MS, bed bound at baseline. Has never seen a swim coach outpt or officially been diagnosed with COPD. All breathing treatments were prescriptions that ran out from last hospital admission. Not on home oxygen.
GOC conversations started. Requested to be DNR. Stated she would not want a feeding tube if recommended.
Pt reports coughing with eating. I spoke with Daughter Bhavani on the phone who reports fairly regular coughing and choking with eating. We had a discussion regarding her mother's barriers to outpt follow up. Pt's family is unable to transport her
to and from doctors offices, so she would have to be reliant on a transportation service due to her wheelchair. It seems like her PCP generally does telehealth visits with visiting nurses for bloodwork and care. We discussed that her PCP could
refill the budesonide. Bhavani also stated that it has been longer than before cov when her mother saw a neurologist. She is unsure, beyond transportation, how to better encourage better follow up.
Continued GOC. Aspirating on all consistencies. Hospice coming in today for family discussion.
PLAN:
#acute respiratory insufficiency
#acute bronchitis
#dysphagia
- Restart home budesonide. PRN Duonebs.
- Continue decadron.
- Begin azithromycin for 5 days
- Continue to monitor for hypoxia.
- Pulmonology recommendations appreciated.
- Leg swelling. New RBBB in setting of possible COPD. 2D Echo demonstrated normal EF, no acute findings.
- Evidence of aspiration
- Wean oxygen
- encourage IS
#MS
- Not currently on medication.
- Concern for microaspiration.
- Needs outpt follow up
#HLD
- continue home statin
#Glaucoma
- continue home eye drops
#obesity
#former smoker
DVT prophylaxis: lovenox
Diet: regular
Disposition: Home
Anticipated Discharge: Within 24 hours
Subjective/Interval History
-
Date of Service: January 01, 2025
Pt reports feeling okay today with continued sputum production.
Objective Data
-
Labs:
Laboratory Results
01/01/25
06:22
WBC 12.0 H
Hgb 13.9
Hct 41.7
Plt Count 208
Sodium 147 H
Potassium 3.8
Chloride 108 H
Carbon Dioxide 32 H
BUN 36 H
Creatinine 0.5 L
Glucose 107 H
Calcium 9.0
Vital Signs:
Vital Signs
Temp Pulse Resp BP Pulse Ox
97.3 F 85 18 152/68 90
01/01/25 07:00 01/01/25 07:30 01/01/25 07:30 01/01/25 07:00 01/01/25 07:30
I&O
12/31/24 01/01/25 01/02/25
06:59 06:59 06:59
Intake Total 940 / 940 360 / 360
Balance 940 / 940 360 / 360
Physical Exam
-
General: Well Developed, Well Nourished, No Apparent Distress and Comfortable
HEENT: Normocephalic, Atraumatic and Moist Mucous Membranes
Respiratory: Clear to Auscultation
Cardiac: Regular Rhythm and S1/S2
GI: Soft, Nontender and Nondistended
Musculoskeletal: Other (baseline LE edema)
Skin: Warm and Dry
Neuro: AO x 3 and Nonfocal/Grossly Intact (at baseline motor deficits)
Psych: Calm
--- NOTE | 2025-01-01 12:11 | HOSPNOTE ---
Met with patient at bedside and spoke with daughter Bhavani via phone and discussed hospice philosophy and home hospice. Long discussion on services and support provided. Patient concerned about sisters approval of going home on hospice as she is
one of her caregivers. Sister Clarita was contacted via phone and spoken to about the above. Sister Clarita has vocalized she is on board with being there to help when patient gets home. All parties in agreement to home hospice with admission tomorrow
01/02.
--- NOTE | 2025-01-01 12:15 | CM ---
CM notified by Paulette Pappas that pt and daughter are in agreement with hospice at home starting tomorrow.
10 am ambulance transport scheduled for home hospice start of care.
[2025-01-01 15:00] VITALS: BP 129/79
--- NOTE | 2025-01-01 16:33 | W.PN.PUL3 ---
Today's Communication / Plan
-
Continue nebulizer therapy without change.
DC home on Budesonide BID + DuoNebs q4hr prn
Azithromycin orally for her bronchitic symptoms for 5 days.
Incentive spirometry encouraged, as tolerated
Wean down supplemental O2 rate as tolerated, keeping SpO2 >88%
Maintain IV corticosteroid for today, weaning as she clinically improves
Diet as per DOCTOR OF AUDIOLOGY
Will follow
Assessment
-
69-year-old woman with past medical history noted. Admitted with mild hypoxemia, cough and shortness of breath similar to admission from June 2024. Chest x-ray with minimal abnormality in the left lower lobe. Admitted for possible acute
exacerbation of COPD.
During last admission she was recommended to follow-up with pulmonary but never followed through.
We were consulted on 12/29/2024.
Acute respiratory insufficiency-suspect acute bronchitis/agree possible exacerbation of COPD.
Chest x-ray 12/28/2024: Mild left basilar opacity suggesting atelectasis or scarring. To my view similar to prior in May 2024.
Negative procalcitonin
proBNP 54-less likely cardiac etiology.
Acute respiratory sufficiency due to above-3-4 L nasal cannula
Leukocytosis-suspect steroid reaction
Conditions present prior admission:
Admission to [facility] 06/2024 acute respiratory insufficiency/acute tracheobronchitis/possible COPD
Admission to the hospital April 2023-with C. difficile diarrhea
Chronic aspiration cannot be ruled out with history of MS.-Swallowing evaluation 04/13/2023 without evidence of overt aspiration.
Multiple sclerosis, not on treatment as she stopped this herself without the recommendation of a neurologist (as per the patient)
History of glaucoma
Hypercholesterolemia
Left knee surgery
Chronic dysphagia, based on previous speech pathology evaluation-modified diet recommended at that time.
Obesity
Former smoker [id number] history
Assessment and plan
Agree, clinical picture suggestive of acute bronchitis-possibly viral/bacterial.
Cannot rule out microaspiration given underlying MS-nonambulatory, poor dentition, not being followed up for her MS in the outpatient setting.
Patient states that she has difficulty getting out of the house and follow-up with doctors.
-
Negative procalcitonin-makes bacterial pneumonia less likely
To my view chest x-ray appears similar to April 2023 and May 2024, although it was slightly opacification in the retrocardiac region, possibly atelectasis from mucous
Given persistently abnormality in the left lower lobe suggest in the outpatient setting after she recovers obtaining a CT of the chest.
-
Suspect patient has underlying COPD. No PFT available. Patient unable to follow-up due to mobility issues, only goes from her wheelchair to her bed. Nonambulatory
Microbiology evaluation so far negative
MRSA screen negative
Influenza and COVID-negative
Follow up sputum Cx
-
Mild hypoxemic respiratory sufficiency-currently on 3-4 L supplemental oxygen. Wean off as able.
Mildly bronchospastic on exam - this has improved
Considering that patient has continued phlegm production with wheezing, continue DuoNebs TID
She says she has a nebulizer machine at home - we should prescribe DuoNebs to be given to her upon discharge
IS if able
Continue zithromax x 5 days, May help with anti-inflammatory properties as well.
-
Continue budesonide/DuoNeb-should be discharged on this medication. Hopefully can follow-up in the outpatient and we can adjust therapy as necessary
IV dexamethasone--can transition to prednisone next 24 hours if she continues to improve
Continue mucolytics
Incentive spirometry encouraged.
-.
Provide oxygen to maintain pulse ox above 90%. Currently on 2-3 L.(Usually not on oxygen supplementation at home)
Can attempt ambulatory pulse oximetry prior to discharge if patient can ambulate, otherwise titrate down O2 as tolerated and discharge home on whatever she needs to maintain SpO2 >88%
Increase activity as able
-
Microaspiration can occur in patient with MS.
Previous speech evaluation during last admission recommended modified diet.
Records reviewed and in April 2023 there is no evidence for aspiration.
VAC on 12/30 showed mild oral and moderate pharyngeal dysphagia with frequent penetration/aspiration noted at times silent. Continue pur�ed diet with thin liquids
Continue aspiration precautions, keeping HOB >30-45�
-
DVT prophylaxis subcu Lovenox
-
Will follow
-
Again, information to follow-up in our office will be left in the chart-patient states that she has difficulty with logistics to move out of the house. This will be difficult, Dr. Middleton discussed this with case management and nursing
Total time spent today was 42 minutes for this encounter. Time includes reviewing laboratory test/imaging results, reviewing pertinent medical records, obtaining and reviewing medical history, performing an appropriate exam, ordering medications,
tests and procedures. Time also includes documentation of this encounter, coordinating patient care and communicating with other healthcare professionals. Total time does not include separately billed tests performed on this date of service.
Subjective Data
-
Date of Service:
Date of Service: January 01, 2025
Chief Complaint: Pulmonary Follow Up (Acute Bronchitis)
Subjective:
Pt seen today at bedside (late note entry). On 4L/min NC and saturating 94-95%. Afebrile overnight.
(patient seen and evaluated on 01/01/2025)
Review of Systems
General: Other (negative unless mentioned above)
Objective Data
Data Reviewed
Vital Signs / I&O / Oxygen:
Vital Signs
Temp Pulse Resp BP Pulse Ox
97.3 F 85 18 152/68 93
01/01/25 07:00 01/01/25 07:30 01/01/25 07:30 01/01/25 07:00 01/01/25 09:30
Intake and Output
12/31/24 01/01/25 01/02/25
06:59 06:59 06:59
Intake Total 940 / 940 360 / 360
Balance 940 / 940 360 / 360
SaO2 93
Nasal Cannula flow liters per 4
minute
Physical Exam
General: Respiratory Distress (negative), Comfortable and Chills (negative)
HEENT: Normocephalic and Anicteric
Cardiovascular: S1-S2 and Peripheral Edema (negative)
Respiratory: Wheeze (negative), Rhonchi (Mild bilateral upon expiration), Non-Labored Respirations, Stridor (negative) and Other (Coarse breath sounds heard bilaterally)
GI: Soft, Non Distended, Non Tender and Normal Bowel Sounds
Neurology: Awake, Alert and Other (generalized muscle weakness - MS)
Skin: Warm, Dry, Cyanosis (negative) and Jaundice (negative)
Labs/Micro/Reports
Lab Data
01/01/25 06:22
01/01/25 06:22
Microbiology
12/30/24 09:21 Sputum Respiratory Culture - Final
12/30/24 09:21 Sputum Gram Stain - Final
12/28/24 21:46 Nose MRSA Screen - Final
No Methicillin Resistant Staphylococcus aureus isolated.
[2025-01-01] MEDS: LOVENOX 40 MG SC (17:11)
[2025-01-01] MEDS: XALATAN OPHTHALMIC SOLUTION 1 DROP BOTH EYES (21:31)
[2025-01-01 23:05] VITALS: BP 138/64
[2025-01-02] MEDS: DECADRON 4 MG IV (05:53)
[2025-01-02] MEDS: DUONEB 3 ML INH (07:56)
[2025-01-02 08:04] VITALS: BP 144/56
--- NOTE | 2025-01-02 08:29 | W.PN.HOSP.TC ---
Addendum entered and electronically signed by Wendy Blake MD, Resident 01/02/25 13:00:
Pt experienced hypoxia in setting of aspiration pneumonitis
Addendum entered and electronically signed by Russell Bryan DO 01/02/25 12:25:
CDI: Aspiration pneumonitis, acute hypoxemic respiratory failure
Original Note:
Today's Communication/Plan
-
Plan reviewed with attending.
Transportation at 10am for home hospice.
Assessment / Plan
Assessment / Plan
IMPRESSION:
69yoF PMH MS, glaucoma, HLD, former smoker presenting with cough and SOB after recently running out of home budesonide.
AFVSS. Continues on oxygen. Pt presented with similar symptoms 6 months ago with resolution. She began having this exacerbation once she ran out of her home breathing treatments. Pt was slightly more rhonchus today before breathing treatments. CXR
demonstrates previous LL atelectasis/scar. Procalcitonin negative, mild leukocytosis resolving. Electrolytes WNL. Negative covid, flu.
Pt has untreated MS, bed bound at baseline. Has never seen a booth cleaner outpt or officially been diagnosed with COPD. All breathing treatments were prescriptions that ran out from last hospital admission. Not on home oxygen.
GOC conversations started. Requested to be DNR. Stated she would not want a feeding tube if recommended.
Pt reports coughing with eating. I spoke with Daughter Bhavani on the phone who reports fairly regular coughing and choking with eating. We had a discussion regarding her mother's barriers to outpt follow up. Pt's family is unable to transport her
to and from doctors offices, so she would have to be reliant on a transportation service due to her wheelchair. It seems like her PCP generally does telehealth visits with visiting nurses for bloodwork and care. We discussed that her PCP could
refill the budesonide. Bhavani also stated that it has been longer than before covid when her mother saw a neurologist. She is unsure, beyond transportation, how to better encourage better follow up.
Aspirating on all consistencies. Transportation at 10am for home hospice.
PLAN:
#acute respiratory insufficiency
#acute bronchitis
#dysphagia
- Restart home budesonide. PRN Duonebs.
- Continue decadron.
- Begin azithromycin for 5 days.
- Continue to monitor for hypoxia.
- Pulmonology recommendations appreciated.
- Leg swelling. New RBBB in setting of possible COPD. 2D Echo demonstrated normal EF, no acute findings.
- Evidence of aspiration
- Wean oxygen
- encourage IS
#MS
- Not currently on medication.
- Concern for microaspiration.
#HLD
- continue home statin
#Glaucoma
- continue home eye drops
#obesity
#former smoker
DVT prophylaxis: lovenox
Diet: regular
Disposition: Home
Anticipated Discharge: Today
Subjective/Interval History
-
Date of Service: January 02, 2025
Pt reports feeling well. She is glad to be going home today.
Objective Data
-
Vital Signs:
Vital Signs
Temp Pulse Resp BP Pulse Ox
97.6 F 63 14 144/56 94
01/02/25 08:04 01/02/25 08:04 01/02/25 08:04 01/02/25 08:04 01/02/25 08:04
I&O
01/01/25 01/02/25 01/03/25
06:59 06:59 06:59
Intake Total 360 / 360 1320 / 1320
Balance 360 / 360 1320 / 1320
Physical Exam
-
General: Well Developed, Well Nourished, No Apparent Distress and Comfortable
HEENT: Normocephalic, Atraumatic and Moist Mucous Membranes
Respiratory: Clear to Auscultation and Non Labored Respirations
Cardiac: Regular Rhythm and S1/S2
GI: Soft and Nontender
Musculoskeletal: No Edema
Skin: Warm and Dry
Neuro: AO x 3 and Nonfocal/Grossly Intact
Psych: Calm
[2025-01-02] MEDS: MUCINEX 600 MG PO (08:36)
[2025-01-02] MEDS: LIPITOR 20 MG PO (08:36)
[2025-01-02] MEDS: ZITHROMAX 500 MG PO (08:37)
[2025-01-02] MEDS: TIMOPTIC 0.5% OPHTHALMIC SOLUTION 1 DROP OPHTH (08:39)
[2025-01-02] MEDS: TRUSOPT 2% OPHTHALMIC SOLUTION 1 DROP BOTH EYES (08:39)
--- NOTE | 2025-01-02 11:01 | CM ---
patient discharged home on hospice
OOH DNR signed.
confirmed with sister Lena equipment was delivered to home, also confirmed with Luisa from hospice
plan: home with hospice
ambulance to transport
--- NOTE | 2025-01-02 11:44 | W.DCSUMMARY ---
Documented by User: Wendy Blake MD, Resident 01/02/25 11:45
Discharge Summary
Discharge Data
Date of Admission: 12/28/24
Date of Discharge: 01/02/25
-
Pending Results: No
Hospital Course
IMPRESSION:
69yoF PMH MS, glaucoma, HLD, former smoker presenting with cough and SOB after recently running out of home budesonide.
AFVSS. Pt presented with similar symptoms 6 months ago. She began having this exacerbation once she ran out of her home breathing treatments. No wheezing on exam today, clear bilaterally. CXR demonstrates previous LL atelectasis/scar. Procalcitonin
negative, mild leukocytosis 13.3. Electrolytes WNL. Low suspicion for pneumonia. Negative covid, flu.
Pt has untreated MS, bed bound at baseline. Has never seen a head of physics outpt or officially been diagnosed with COPD. All breathing treatments were prescriptions that ran out from last hospital admission.
Acute respiratory insufficiency. Restart home budesonide. PRN Duonebs. Decadron. Observed off antibiotics. Azithromcyin started 12/30 for continued sputum production. Monitor for hypoxia. Pulmonology consulted. Worse leg swelling than baseline
bilaterally, not significant, improved overnight. New RBBB in setting of possible COPD. 2D Echo demonstrated normal EF.
Pt was noted to be choking after eating and drinking on second day of admission. Speech saw her and noted aspiration. Video swallow demonstrated aspiration with all consistencies. GOC started regarding feeding tube vs hospice. Pt waited for hospice
nurse to have family discussion 01/01, decided on home hospice. Pt sent home with comfort breathing treatments and home hospice.
Discharge Plan
-
Patient Disposition: Home (Routine Discharge)
Discharge Diagnosis/Procedures: acute respiratory insufficiency
Diet: As tolerated
Activity: As tolerated
Driving Restrictions: As prior to admission
Bathing Restrictions: None
Other Services: Hospice
Referrals:
Tess Garcia PA [Family Provider, Family Practice]
Prescriptions:
Continued
latanoprost 0.005 % Drops
1 drp BOTH EYES HS
dorzolamide-timolol 22.3-6.8 mg/mL drops
1 drp BOTH EYES BID
guaifenesin 200 mg Tablet
200 mg PO BIDPRN PRN (Reason: cough)
albuterol sulfate 90 mcg/actuation HFA aerosol inhaler
2 puff inhalation R Q6HPRN PRN (Reason: shortness of breath or wheezing)
budesonide 0.5 mg/2 mL suspension for nebulization
0.5 mg inhalation R BID
Discontinued
atorvastatin [Lipitor] 20 mg Tablet
20 mg PO DAILY
Discharge Orders:
Discharge Patient (As Directed); Ordered 01/02/25
Ordered By: Wendy Blake
Discharge Date and Time
Discharge Date/Time: 01/02/25 11:18
Print Language: MONGOLIAN

Documented by User: Russell Bryan DO 01/02/25 11:47
Discharge Summary
Discharge Data
Date of Admission: 12/28/24
Date of Discharge: 01/02/25
Total time spent discharging patient (in min): 31
Discharge Plan
-
Patient Disposition: Home (Routine Discharge)
Discharge Diagnosis/Procedures: acute respiratory insufficiency
Diet: As tolerated
Activity: As tolerated
Driving Restrictions: As prior to admission
Bathing Restrictions: None
Other Services: Hospice
Referrals:
Tess Garcia PA [Family Provider, Family Practice]
Prescriptions:
Continued
latanoprost 0.005 % Drops
1 drp BOTH EYES HS
dorzolamide-timolol 22.3-6.8 mg/mL drops
1 drp BOTH EYES BID
guaifenesin 200 mg Tablet
200 mg PO BIDPRN PRN (Reason: cough)
albuterol sulfate 90 mcg/actuation HFA aerosol inhaler
2 puff inhalation R Q6HPRN PRN (Reason: shortness of breath or wheezing)
budesonide 0.5 mg/2 mL suspension for nebulization
0.5 mg inhalation R BID
Discontinued
atorvastatin [Lipitor] 20 mg Tablet
20 mg PO DAILY
Discharge Orders:
Discharge Patient (As Directed); Ordered 01/02/25
Ordered By: Wendy Blake
Discharge Date and Time
Discharge Date/Time: 01/02/25 11:18
Print Language: MONGOLIAN
--- NOTE | 2025-01-02 11:58 | PN.CDI ---
CDI
- -
CDI:
Physician Documentation Request
Admit Date: 12/28/24 16:41
Dear Doctor Hayden,
Clinical Indicators:
Patient admitted with acute respiratory insufficiency; PMH includes Multiple Sclerosis.
12/28 CXR: Patchy opacity in the left lung base
12/31 PN, 'I spoke with Daughter Bhavani on the phone who reports fairly regular coughing and choking with eating'
01/02 PN, 'Pt was noted to be choking after eating and drinking on second day of admission. Speech saw her and noted aspiration. Video swallow demonstrated aspiration with all consistencies.'
02 requirements: 2- 4L NC
Based on the above, could you clarify in the progress notes, the appropriate diagnosis, if significant, that supports the above abnormalities and additional evaluation, monitoring and/or treatment rendered:
Aspiration Pneumonitis, POA
Aspiration only
Other
Use of terms such as suspected, likely, concern for, or probable (associated with a specific diagnosis that is being evaluated, monitored, or treated as if it exists) are acceptable and can be coded in the inpatient setting, when documented at the
time of discharge.
Thank you,
MARSHALL Carias RN
CDI Specialist
available via tiger text
Please use your independent medical judgment in providing your response.
--- NOTE | 2025-01-02 12:12 | PN.CDI ---
CDI
- -
CDI:
Physician Documentation Request
Admit Date: 12/28/24 16:41
Dear Doctor Hayden,
Clinical Indicators:
12/30 PN, 'Acute hypoxemic respiratory failure secondary to acute aspiration...'
12/31 PN, '#acute respiratory insufficiency'
RR trend on admission:
12/28/24
13:07 12/28/24
14:00 12/28/24
15:00
Resp Rate 33 27 22
12/28/24
16:00 12/28/24
16:25 12/28/24
17:00
Resp Rate 27 32 23
02 requirements:
12/28/24
13:04 12/28/24
13:07 12/29/24
08:50
SaO2 89
Nasal Cannula flow liters per minute 2 3
12/30/24
07:57 12/30/24
09:21 12/30/24
20:00
SaO2 90
Nasal Cannula flow liters per minute 4 3 4
Due to potentially conflicting documentation, please clarify which of the following accurately represents the patient's respiratory status:
Acute hypoxic respiratory failure
Hypoxia only
Other
Additional information for Respiratory Failure:
Recognized criteria for Respiratory Failure (Source: Ra Castaneda. 2019 February 23.
Documentation tips: Acute Respiratory Failure, The Hospitalist.)
ABGs: (1 or more) Symptoms Please indicate type if known
1. p)2 <60 or RA SPO2 <91% on RA 1. Tachypnea, SOB, dyspnea Hypoxic
2. pCO2 >45 and pH <7.35 2. Use of accessory muscles Hypercapnic
3. pO2 decrease of pCO2 increase by 3. Pallor or cyanosis Hypoxic and Hypercapnic
10 mmHg from baseline if known 4. Anxiety or restlessness Unable to determine
4. P/F Ratio (pO2/FiO2)nless than 300 5. Unable to speak in full sentences
Use of terms such as suspected, likely, concern for, or probable (associated with a specific diagnosis that is being evaluated, monitored, or treated as if it exists) are acceptable and can be coded in the inpatient setting, when documented at the
time of discharge.
Thank you,
MARSHALL Carias RN
CDI Specialist
available via tiger text
Please use your independent medical judgment in providing your response.
== END 2025-01-02 11:18 | disposition hospice, home (50) | DRG 177 ==
LOC: 3 WEST ACU 16:41
PROVIDERS: Physician Assistant Medical; ADMITTING PHYSICIAN Hospitalist; ATTENDING PHYSICIAN Internal Medicine; CONSULT PHYSICIAN Internal Medicine Critical Care Medicine; EMERGENCY PHYSICIAN Student in an Organized Health Care Education/Training Program; FAMILY PHYSICIAN Physician Assistant; OTHER PHYSICIAN Hospitalist
DX: J69.0 Pneumonitis due to inhalation of food and vomit (principal); J96.01 Acute respiratory failure with hypoxia; J44.1 Chronic obstructive pulmonary disease with (acute) exacerbation; J44.0 Chronic obstructive pulmonary disease with (acute) lower respiratory infection; G35 Multiple sclerosis; H40.9 Unspecified glaucoma; Z66 Do not resuscitate; Z51.5 Encounter for palliative care; E78.00 Pure hypercholesterolemia, unspecified; E66.09 Other obesity due to excess calories; D72.828 Other elevated white blood cell count; T38.0X5A Adverse effect of glucocorticoids and synthetic analogues, initial encounter; T44.5X6A Underdosing of predominantly beta-adrenoreceptor agonists, initial encounter; J20.9 Acute bronchitis, unspecified; Z11.52 Encounter for screening for COVID-19; Z68.29 Body mass index [BMI] 29.0-29.9, adult; Z91.138 Patient's unintentional underdosing of medication regimen for other reason; Z88.8 Allergy status to other drugs, medicaments and biological substances; Z79.51 Long term (current) use of inhaled steroids; Z87.891 Personal history of nicotine dependence; Z79.899 Other long term (current) drug therapy; Z74.01 Bed confinement status
CPT/HCPCS: 71046; 74230; 80048; 80053; 83880; 84145; 84484; 85025; 85027; 86803; 87070; 87205; 87502; 87811; 92610; 92611; 93005; 93306; 94640; 96365; 96375; 99285